=== PATIENT | male | born 1990 | race Caucasian/White ===

== ENCOUNTER → 2020-02-21 07:29 | Outpatient (CLI) | payer BC, SELFPAY ==
--- NOTE | 2020-02-21 07:43 | US_ITS ---
PROCEDURE: US ABDOMEN LIMITED CLINICAL INDICATION: RUQ PAIN COMPARISON: No exams were available for comparison FINDINGS: PANCREAS: Unremarkable. No obvious mass or abnormal fluid collection. No ductal dilatation LIVER: No focal liver lesions demonstrated. Homogeneous echogenicity. No intrahepatic biliary ductal dilatation evident. There is appropriate direction of blood flow within a non dilated portal vein RIGHT KIDNEY: Unremarkable. Normal size and echogenicity. No hydronephrosis GALLBLADDER: No gallstones, gallbladder wall thickening, pericholecystic fluid, or biliary dilatation. IMPRESSION: Unremarkable limited abdominal ultrasound as detailed above disc Dictated by: Bong Moya MD 02/21/2020 08:50 Electronically signed by Bong Moya MD in [place] 02/21/2020 08:50
[2020-02-21 08:44] LABS: Basophils # 0.1 K/mm3 (0-0.2); Basophils % 1.1 % (0.1-2.0); Eosinophils # 0.3 K/mm3 (0.0-0.4); Eosinophils % 4.1 % (0.1-12.0); Hematocrit 39.5 % (42.0-52.0); Hemoglobin 13.7 g/dL (14.1-18.0); Lymphocytes # 1.5 K/mm3 (0.7-4.5); Lymphocytes % 20.1 % (10-50); Mean Corpuscular HGB Conc 34.8 g/dL (31.8-35.4); Mean Corpuscular Hemoglobin 34.4 pg (27.0-31.2); Mean Corpuscular Volume 98.8 fl (80-94); Mean Platelet Volume 8.2 fl (7.4-10.4); Monocytes # 0.4 K/mm3 (0.1-1.0); Monocytes % 4.9 % (1.7-9.3); Neutrophils # 5.3 K/mm3 (1.8-7.8); Neutrophils % 69.9 % (37.0-80.0); Platelet Count 191 K/mm3 (142-424); Red Blood Count 3.99 M/mm3 (4.60-6.20); Red Cell Distribution Width 13.8 % (11.5-17.5); White Blood Count 7.6 K/mm3 (4.8-10.8)
[2020-02-21 09:46] LABS: Chloride 100 mmol/L (98-107); Sodium 140 mmol/L (136-145)
[2020-02-21 09:47] LABS: Potassium 4.3 mmoL/L (3.5-5.1)
[2020-02-21 09:49] LABS: Alanine Aminotransferase 75 U/L (12-78); Alkaline Phosphatase 52 U/L (38-126); Anion Gap 13.3 mEq/L (5-15); Aspartate Amino Transferase 75 U/L (17-59); Bilirubin,Total 0.6 mg/dl (0.2-1.3); Blood Urea Nitrogen 19 mg/dl (9-20); Calcium 9.7 mg/dl (8.4-10.2); Carbon Dioxide 31 mmol/L (22.0-30.0); Estimated Glomerular Filt Rate 56 ml/min (>60); GFR (African American) 68 ML/MIN (>60); Glucose 96 mg/dl (74-100)
[2020-02-21 09:50] LABS: Albumin/Globulin Ratio 1.7 (1.1-1.8)
[2020-02-21 12:39] LABS: 25-OH Vitamin D, Total 21.6 ng/mL (30-100)
[2020-02-22 09:18] LABS: Vitamin B12 330 pg/mL (232-1245)
== END ==
PROVIDERS: Visit Provider Nurse Practitioner
DX: R10.11 Right upper quadrant pain (principal); R53.82 Chronic fatigue, unspecified; E55.9 Vitamin D deficiency, unspecified
CPT/HCPCS: 36415; 76705; 80053; 82306; 82607; 84443; 85025

== ENCOUNTER → 2021-02-21 09:12 | Outpatient (CLI) | payer BC, SELFPAY ==
--- NOTE | 2021-02-21 09:23 | US_ITS ---
PROCEDURE: US GALLBLADDER CLINICAL INDICATION: OTHER SPECIFIED ABN FINDINGS OF BLOOD CHEMISTRY COMPARISON: US US ABDOMEN LIMITED from 02/21/2020 FINDINGS: Pancreas: Unremarkable/Not well seen Liver: Unremarkable. There is appropriate direction of blood flow within a non dilated portal vein. Right kidney: Unremarkable appearing. No hydronephrosis. Gallbladder: No stones are evident. There is no gallbladder wall thickening. Common duct is normal in diameter. IMPRESSION: Negative gallbladder ultrasound. No stones evident. Dictated by: Bong Moya MD 02/21/2021 12:57 Bong Moya MD in [facility] 02/21/2021 12:57
== END ==
PROVIDERS: PCP Nurse Practitioner; Visit Provider Nurse Practitioner
DX: R79.89 Other specified abnormal findings of blood chemistry (principal)
CPT/HCPCS: 76705

== ENCOUNTER → 2021-12-03 08:23 | Outpatient (CLI) | payer BC, SELFPAY ==
--- NOTE | 2021-12-03 08:26 | MR_ITS ---
FINAL REPORT CLINICAL HISTORY: Dizziness, headache, hearing loss. dizziness x6-7 months. migraine headaches xyrs. hearing loss out of left ear. 20ml prohance given. FINDINGS: Multiplanar MR imaging of the brain was performed without and with contrast, with attention to the posterior fossa, cerebellopontine angles and internal auditory canals. There is no evidence of intracranial hemorrhage or mass. The ventricular size is within normal limits. There is no evidence of shift of the midline structures. No area of abnormal restricted diffusion is identified. Normal major vessel vascular flow voids are seen. No abnormal contrast enhancement is identified within the brain. No mass or abnormal contrast enhancement is seen within the cerebellopontine angles or internal auditory canals. No focal abnormality is identified of the temporal bones. IMPRESSION: No acute intracranial abnormality identified. No mass or abnormal contrast enhancement identified within the cerebellopontine angles or internal auditory canals. Reviewed, Interpreted and Dictated by Danie Rasheed III, MD Transcribed by Gay Mireles Authenticated by Danie Rasheed III, MD on 12/03/2021 11:41:21 AM [facility]
== END ==
PROVIDERS: PCP Nurse Practitioner; Visit Provider Specialist
DX: R42 Dizziness and giddiness (principal); G44.1 Vascular headache, not elsewhere classified; H91.92 Unspecified hearing loss, left ear
CPT/HCPCS: 70553; A9576

== ENCOUNTER → 2021-12-25 10:49 | Outpatient (CLI) | payer BC, SELFPAY | LOC: SL 10:51 | PROVIDERS: PCP Nurse Practitioner; Visit Provider Specialist | DX: G47.30 Sleep apnea, unspecified (principal); R06.83 Snoring | CPT/HCPCS: G0399 ==

== ENCOUNTER → 2022-07-16 14:50 | Outpatient (CLI) | payer BC, SELFPAY ==
[2022-07-16 18:03] LABS: Basophils # 0.1 K/mm3 (0-0.2); Basophils % 1.2 % (0.1-2.0); Eosinophils # 0.1 K/mm3 (0.0-0.4); Eosinophils % 2.1 % (0.1-12.0); Hematocrit 50.3 % (42.0-52.0); Hemoglobin 16.6 g/dL (14.1-18.0); Lymphocytes # 1.6 K/mm3 (0.7-4.5); Lymphocytes % 23.7 % (10-50); Mean Corpuscular Hemoglobin 30.4 pg (27.0-31.2); Mean Corpuscular Volume 92.1 fl (80-94); Mean Platelet Volume 10.5 fl (7.4-10.4); Monocytes # 0.5 K/mm3 (0.1-1.0); Monocytes % 6.5 % (1.7-9.3); Neutrophils # 4.6 K/mm3 (1.8-7.8); Neutrophils % 66.5 % (37.0-80.0); Platelet Count 206 K/mm3 (142-424); Red Blood Count 5.47 M/mm3 (4.60-6.20); Red Cell Distribution Width 12.7 % (11.5-17.5); White Blood Count 6.9 K/mm3 (4.8-10.8)
[2022-07-16 18:04] LABS: Alanine Aminotransferase 60 U/L (12-78); Albumin Level 4.9 g/dl (3.5-5.0); Albumin/Globulin Ratio 1.8 (1.1-1.8); Alkaline Phosphatase 109 U/L (38-126); Anion Gap 12.4 mEq/L (5-15); Aspartate Amino Transferase 43 U/L (17-59); Bilirubin,Total 0.5 mg/dl (0.2-1.3); Blood Urea Nitrogen 11 mg/dl (9-20); Carbon Dioxide 28 mmol/L (22.0-30.0); Chloride 103 mmol/L (98-107); Chol/HDL Ratio 6.5 (1-3.5); Cholesterol 196 mg/dl (140-200); Estimated Glomerular Filt Rate 79 ml/min (>60); GFR (African American) 95 ML/MIN (>60); Globulin 2.8 g/dL (1.3-3.2); Glucose 102 mg/dl (74-100); HDL Cholesterol 30 mg/dl (40-60); Potassium 4.4 mmoL/L (3.5-5.1); Sodium 139 mmol/L (136-145); Total Protein,Serum 7.7 g/dl (6.3-8.2); Triglycerides 181 mg/dl (30-150); VLDL Cholesterol 36 mg/dL (0-40)
[2022-07-16 18:15] LABS: Direct LDL Cholesterol 128.87 mg/dL (100-129)
== END ==
PROVIDERS: PCP Family Medicine; Visit Provider Family Medicine
DX: E03.9 Hypothyroidism, unspecified (principal)
CPT/HCPCS: 80053; 80061; 84443; 85025

== ENCOUNTER → 2023-05-09 08:17 | Outpatient (CLI) | payer BC, SELFPAY ==
[2023-05-09 17:56] LABS: Thyroid Stimulating Hormone 1.22 uIU/mL (0.465-4.68)
== END ==
PROVIDERS: PCP Nurse Practitioner Family; Visit Provider Nurse Practitioner Family
DX: E03.9 Hypothyroidism, unspecified (principal)
CPT/HCPCS: 84443

== ENCOUNTER 2024-06-04 09:45 | Outpatient (CLI) | payer OTHER, SELFPAY ==
[2024-06-04 16:50] LABS: Basophils # 0.1 K/mm3 (0-0.2); Basophils % 0.9 % (0.1-2.0); Eosinophils # 0.2 K/mm3 (0.0-0.4); Eosinophils % 2.1 % (0.1-12.0); Hematocrit 49.1 % (42.0-52.0); Hemoglobin 16.4 g/dL (14.1-18.0); Lymphocytes # 1.1 K/mm3 (0.7-4.5); Lymphocytes % 12.1 % (10-50); Mean Corpuscular HGB Conc 33.3 g/dL (31.8-35.4); Mean Corpuscular Hemoglobin 30.5 pg (27.0-31.2); Mean Corpuscular Volume 91.4 fl (80-94); Mean Platelet Volume 8.9 fl (7.4-10.4); Monocytes # 0.6 K/mm3 (0.1-1.0); Monocytes % 6.1 % (1.7-9.3); Neutrophils # 7.1 K/mm3 (1.8-7.8); Neutrophils % 78.6 % (37.0-80.0); Platelet Count 238 K/mm3 (142-424); Red Blood Count 5.37 M/mm3 (4.60-6.20); Red Cell Distribution Width 13.1 % (11.5-17.5)
[2024-06-04 17:03] LABS: Albumin Level 4.9 g/dl (3.5-5.0); Chloride 102 mmol/L (98-107); Potassium 4.3 mmoL/L (3.5-5.1); Sodium 140 mmol/L (136-145)
[2024-06-04 17:06] LABS: Alanine Aminotransferase 62 U/L (12-78); Albumin/Globulin Ratio 1.8 (1.1-1.8); Alkaline Phosphatase 76 U/L (38-126); Anion Gap 15.3 mEq/L (5-15); Aspartate Amino Transferase 38 U/L (17-59); Bilirubin,Total 0.6 mg/dl (0.2-1.3); Blood Urea Nitrogen 11 mg/dl (9-20); Carbon Dioxide 27 mmol/L (22.0-30.0); Cholesterol 195 mg/dl (140-200); Estimated Glomerular Filt Rate 98 ml/min (>60); GFR (African American) 119 ML/MIN (>60); Globulin 2.7 g/dL (1.3-3.2); Total Protein,Serum 7.6 g/dl (6.3-8.2); Triglycerides 175 mg/dl (30-150); VLDL Cholesterol 35 mg/dL (0-40)
[2024-06-04 17:07] LABS: Calcium 9.6 mg/dl (8.4-10.2); Chol/HDL Ratio 5.1 (1-3.5); Glucose 80 mg/dl (74-100); HDL Cholesterol 38 mg/dl (40-60)
[2024-06-04 17:17] LABS: Direct LDL Cholesterol 128.39 mg/dL (100-129)
[2024-06-04 17:58] LABS: Thyroid Stimulating Hormone 0.87 uIU/mL (0.465-4.68)
[2024-06-04 18:17] LABS: HIV (1&2) Antibody Rapid NONREACTIVE (NONREACTIVE)
[2024-06-05 09:14] LABS: HCV Ab Non Reactive (Non Reactive)
== END 2024-06-04 23:59 | disposition home or self-care (01) ==
LOC: LAB.DROPOF 06-07 10:25
PROVIDERS: PCP Family Medicine; Visit Provider Family Medicine
DX: Z00.00 Encounter for general adult medical examination without abnormal findings (principal)
CPT/HCPCS: 80050; 80053; 80061; 84443; 85025; 86803; 87389

== ENCOUNTER 2024-12-17 18:43 | Inpatient (IN) | payer OTHER, SELFPAY ==
[2024-12-17 19:00] VITALS: BP 160/107; PULSE 98; RESP 16; TEMP 36.7; O2SAT 100; BMI 33.0
[2024-12-17 19:07] LABS: Microscopic, Urine URINE MICROSCOPIC (MICROSCOPIC)
[2024-12-17 19:16] LABS: Appearance,Urine CLEAR (Clear); Bilirubin,Urine Negative (Negative); Blood, Urine 3+ (Negative); Color,Urine YELLOW (Yellow); Glucose,Urine (UA) Negative (Negative); Ketones,Urine Negative (Negative); Leukocyte Esterase,Urine Negative (Negative); Nitrate,Urine Negative (Negative); Protein,Urine 1+ (Negative); Urobilinogen,Urine 0.2 EU/dl (0.2)
[2024-12-17 20:01] LABS: Basophils # 0.1 K/mm3 (0-0.2); Basophils % 0.5 % (0.1-2.0); Eosinophils # 0.1 Kmm3 (0.0-0.4); Eosinophils % 0.8 % (0.1-12.0); Hematocrit 47.8 % (42.0-52.0); Hemoglobin 16.8 g/dL (14.1-18.0); Immature Granulocytes # 0.07 10^3uL; Immature Granulocytes % 0.6 %; Lymphocytes # 1.8 K/mm3 (0.7-4.5); Lymphocytes % 14.9 % (10-50); Mean Corpuscular HGB Conc 35.1 g/dL (31.8-35.4); Mean Corpuscular Hemoglobin 30.5 pg (27.0-31.2); Mean Corpuscular Volume 86.9 fl (80-94); Mean Platelet Volume 10.2 fl (7.4-10.4); Monocytes # 0.8 K/mm3 (0.1-1.0); Monocytes % 6.7 % (1.7-9.3); Neutrophils # 9.3 K/mm3 (1.8-7.8); Neutrophils % 76.5 % (37.0-80.0); Nucleated Red Blood Cells # 0 10^3/uL; Nucleated Red Blood Cells % 0 %; Platelet Count 275 K/mm3 (142-424); Red Cell Distribution Width-SD 38.4 fL; White Blood Count 12.2 K/mm3 (4.8-10.8)
[2024-12-17] MEDS: LACTATED RINGERS 1000ML 1,000 ML 999 ML IV ×2 (20:01→20:53)
[2024-12-17 20:06] LABS: Bacteria,Urine Trace /lpf; RBC,Urine Occasional #/hpf (0-3); Squamous Epithelial Cell,Urine Occasional #/hpf (0-5)
--- NOTE | 2024-12-17 20:11 | HMH.EDGENADL ---
Discharge Plan Disposition Patient Disposition: Admitted Clinical Impressions Clinical Impression: Rhabdomyolysis Discharge ED Provider: Guerda Pat General Adult HPI General Chief complaint: Urogenital-Male Stated complaint: urine is dark brown Time Seen by Provider: 12/17/24 19:03 Mode of Arrival: Ambulatory Source of Information: Patient Description of Symptoms (Recalled from ER Triage Doc. by RN): Dark Brown urine x6 hours. Just started working out 3 days ago. No other urinary symptoms. History of Present Illness HPI narrative: This patient is a 34-year-old male who has history of hypothyroidism presenting to the emergency department for evaluation with concern for dark urine. Patient reports he worked out for the first time yesterday and thinks that he might have overdone it. He notes that he has significant muscle soreness in his chest and upper body. He states that he told his friend about dark urine and his friend said he might have rhabdomyolysis. He denies any back pain or other concerns. Related Data Previous Rx's ?Medication ?Instructions ?Recorded betamethasone dipropionate 0.05 % 1 applic topical DAILY #15 grams 06/04/24 topical cream levothyroxine 200 mcg tablet 200 mcg PO DAILY 90 days #90 tabs 09/23/24 sertraline 25 mg tablet (Zoloft) 25 mg PO DAILY anxiety #30 tabs 10/29/24 verapamil 120 mg tablet,extended See Rx Instructions .Route 10/29/24 release .COMPLEX #30 tabs Allergies Allergy/AdvReac Type Severity Reaction Status Date / Time No Known Allergies Allergy Verified 08/23/24 12:41 [facility] Disclaimer: The information contained in this section may have been updated after the patient was seen, as this information can be updated by other users. Medical History Hypothyroidism Migraine Surgical History No significant past surgical history Family History Mother Cancer Social History Smoking Status: Never smoker alcohol intake: never substance use type: denies use current occupational status: employed Travel in the last 8 weeks?: None household members: significant other housing: house Have you lived/traveled outside US in past 30 days?: No Contact w/someone who lives/traveled outside US past 30 days?: No Exposure to someone with infectious disease in past 14 days?: No Do you have a fever (greater than 100.4 F or 38 C)?: No Have you tested positive for COVID-19?: No Exposed to someone with COVID-19 in past 14 days?: No Do you have a sore throat?: No Do you have a cough?: No Do you have any weakness?: No Do you have any diarrhea?: No Are you experiencing any unusual bleeding?: No Do you have any muscle aches/pain?: No Do you have any abdominal pain?: No Are you experiencing loss of taste or smell?: No Other Medical History Have you received the Pneumonia Vaccine: No ROS Obtained: Yes All systems reviewed & no additional complaints except as documented Physical Exam General General appearance: alert and in no apparent distress Head Head exam: atraumatic and normocephalic Eye Eye exam: Present normal appearance, PERRL and EOMI ENT ENT exam: Present normal exam, normal oropharynx, mucous membranes moist and normal external ear exam Neck Neck exam: Present normal inspection, full ROM and trachea midline; Absent tenderness Chest Chest inspection: Present normal inspection and symmetric chest wall rise; Absent tenderness Respiratory Respiratory exam: Present normal lung sounds bilaterally; Absent respiratory distress, wheezes, stridor or accessory muscle use Cardiovascular Cardiovascular exam: Present regular rate and normal rhythm Abdominal Exam Abdominal exam: Present soft; Absent distention, tenderness or guarding Extremities Exam Extremities exam: Present normal inspection, full ROM and normal capillary refill; Absent tenderness or edema Back Exam Back exam: Present normal inspection and full ROM; Absent tenderness Neurological Exam Neurological exam: Present alert, oriented X3, CN II-XII intact and normal gait; Absent motor sensory deficit Psychiatric Psychiatric exam: Present normal affect and normal mood Skin Skin exam: Present warm and dry Medical Decision Making Medical Records Medical records reviewed: Yes I reviewed the patient's medical records. Screening: Per USPSTF and CDC recommendations, given the prevalence of disease in our region, it is our hospital?s policy to screen for HIV and viral Hepatitis for all patients aged 18 and over and those with ongoing risk factors. [place] Inquiry Pt receiving controlled substance: No Vital Signs: 12/17/24 19:00 12/17/24 23:00 12/17/24 23:12 Temperature 98.1 F 98.3 F Temperature Source Oral Oral Pulse Rate 87 Pulse Rate [Right] 98 H Respiratory Rate 16 18 Blood Pressure 148/102 H Blood Pressure [Right Arm] 160/107 H Blood Pressure Mean [Right Arm] 124 02 Sat by Pulse Oximetry 100 Oxygen Delivery Method Room Air Room Air Room Air Lab Data Lab results reviewed: Yes I reviewed the patient's lab results. Lab Results 12/17/24 18:57: Urine Color Yellow, Urine Appearance Clear, Urine pH 6.0, Ur Specific [place] 1.010, Urine Protein 1+ A, Urine Glucose (UA) Negative, Urine Ketones Negative, Urine Blood 3+ A, Urine Nitrate Negative, Urine Bilirubin Negative, Urine Urobilinogen 0.2, Ur Leukocyte Esterase Negative, Urine RBC Occasional, Urine WBC None, Ur Squamous Epith Cells Occasional, Urine Bacteria Trace 12/17/24 19:52: WBC 12.2 H, RBC 5.50, Hgb 16.8, Hct 47.8, MCV 86.9, MCH 30.5, MCHC 35.1, RDW 12.0, Plt Count 275, MPV 10.2, Neut % (Auto) 76.5, Lymph % (Auto) 14.9, [place] % (Auto) 6.7, Eos % (Auto) 0.8, Baso % (Auto) 0.5, Neut # (Auto) 9.3 H, Lymph # (Auto) 1.8, [place] # (Auto) 0.8, Eos # (Auto) 0.1, Baso # (Auto) 0.1, Sodium 139, Potassium 4.1, Chloride 102, Carbon Dioxide 30, Anion Gap 11.1, BUN 20, Creatinine 1.20, Estimated Creat Clear 142, Estimated GFR 70, Est GFR ( Amer) 85, Glucose 98, Lactate 1.3, Calcium 9.7, Total Creatine Kinase > 300733 H* 12/17/24 19:52 12/17/24 19:52 Orders (Tests/Meds): ED MEDICATIONS Generic Name Dose Route Start Last Admin Trade Name Freq PRN Reason Stop Dose Admin Acetaminophen 650 mg 12/17/24 22:51 Acetaminophen 325mg Tab PO 01/16/25 22:50 Q4HP PRN Fever or Mild Pain (1-3) Diazepam 2 mg 12/17/24 23:10 12/18/24 00:17 Diazepam 2mg Tablet PO 01/16/25 23:09 2 mg Q6HP PRN Administration Muscle Pain Hydromorphone HCl 1 mg 12/17/24 22:51 Hydromorphone 2mg/Ml Syringe IV 01/16/25 22:50 Q4HP PRN Severe Pain (7-10) Lactated Ringer's 500 mls @ 250 mls/hr 12/17/24 22:27 12/17/24 23:51 Lactated Ringer's 1000 Ml Bag IV 12/18/24 00:26 250 mls/hr .Q2H ONE Administration Ondansetron HCl 4 mg 12/17/24 22:51 Ondansetron 4mg/2ml Vial IV 01/16/25 22:50 Q8HP PRN Nausea Pantoprazole Sodium 40 mg 12/18/24 21:00 Pantoprazole 40mg Tablet PO 01/17/25 20:59 HS ABIODUN Discontinued Medications Generic Name Dose Route Start Last Admin Trade Name Freq PRN Reason Stop Dose Admin Lactated Ringer's 1,000 mls @ 999 mls/hr 12/17/24 19:43 12/17/24 20:01 Lactated Ringer's 1000 Ml Bag IV 12/17/24 20:43 999 mls/hr .Q1H1M ONE Administration Lactated Ringer's 1,000 mls @ 999 mls/hr 12/17/24 20:37 12/17/24 20:53 Lactated Ringer's 1000 Ml Bag IV 12/17/24 21:37 999 mls/hr .Q1H1M ONE Administration ORDERS Category Date Time Status BMP [Basic Metabolic Panel] Stat Lab 12/17/24 19:52 Completed CBC w/Auto Diff [Complete Blood Count Auto Diff] Stat Lab 12/17/24 19:52 Completed CK [Creatine Kinase] Stat Lab 12/17/24 19:52 Completed Lactic Acid Stat Lab 12/17/24 19:52 Completed UA [Urinalysis and Microscopic] Stat Lab 12/17/24 18:57 Completed Medical Decision Narrative: In summary, this patient is a 34-year-old male presenting to the Emergency Department for evaluation of dark urine after exercising yesterday for the first time. Differential diagnoses considered include but are not limited to NH lysis, dehydration, KRIS. Ruling out the most morbid conditions drove assessment. It should be noted patient's history includes hypothyroidism which may or may not be at goal therapy. This complicates all aspects of care by increasing patient's risk for morbidity. On exam, the patient is well-appearing. He sitting upright in no acute distress with reassuring vitals on cardiac telemetry. Workup included urinalysis initially, which was concerning for 3+ blood with only occasional red blood cells. This is concerning for rhabdomyolysis, so CBC, BMP, CK, and lactic acid were added. Patient was given a bolus of IV fluids. Labs demonstrated reassuring CBC with mild leukocytosis, chemistry demonstrates normal kidney function but slightly elevated creatinine from prior, 1.2 today from 0.9 before. He is still making urine. CK is too high to calculate on our lab evaluation after multiple dilutions. I had an interactive discussion with lab who advises they are sending it out to [facility] for testing. It was greater than 160,000. Given this, he was treated with 2 L of IV fluids and then 250 cc/h of IV fluids here in the emergency department. I feel he would benefit from admission for close monitoring of his urine output and kidney function. I had an interactive discussion with the hospitalist who admitted the patient in stable condition. Critical Care Critical Care Time Critical Care Time: No
[2024-12-17 20:20] LABS: Anion Gap 11.1 mEq/L (5-15); Blood Urea Nitrogen 20 mg/dl (9-20); Calcium 9.7 mg/dl (8.4-10.2); Carbon Dioxide 30 mmol/L (22.0-30.0); Chloride 102 mmol/L (98-107); Creatinine Clearance Estimated 142 mL/min (50-200); Estimated Glomerular Filt Rate 70 ml/min (>60); GFR (African American) 85 ML/MIN (>60); Glucose 98 mg/dl (74-100); Lactic Acid 1.3 mmol/L (0.7-2.1); Potassium 4.1 mmoL/L (3.5-5.1); Sodium 139 mmol/L (136-145)
[2024-12-17 23:12] VITALS: BP 148/102; PULSE 87; RESP 18; TEMP 36.8; O2SAT 98
[2024-12-17] MEDS: LACTATED RINGERS 1000ML 500 ML 250 ML IV (23:51)
[2024-12-17 23:53] VITALS: BP 148/102; PULSE 86; RESP 17; TEMP 36.7; O2SAT 100; BMI 33.1
[2024-12-18] MEDS: diazePAM 2MG TABLET 2 MG PO (00:17)
--- NOTE | 2024-12-18 02:36 | P.HP_ITS ---
History of Present Illness *Admission Date: 12/17/24 *Reason for visit:: Rhabdomyolysis *History of present illness: This very pleasant young 32-year-old male, got with one of his friends that is a weightlifter and spent basically all day lifting weights. Multiple sets with a fairly significant amount of weight with high reps. He began to hurt all over to come in to be checked, labs indicate his CK levels are so high that even diluting them cannot get them below the highest measurement.. He also noted he hurt all over and that his urine was dark. I have interviewed him and assessed in the emergency room. The patient is able to walk without any assistance he does not look to be in any acute distress. On talking with him he describes how his upper body and muscles throughout the chest wall are really hurting . He is pleasant and is breast understanding of the lab values and that this may end up causing him some problems and that we need to keep him overnight to continue to flush out the muscle enzymes to prevent any type of kidney injury. So we will admit him to the floor continue to give him lactated Ringer's at 250 cc an hour presently on his fourth liter at this time. Labs will be repeated in the morning to see if you are making progress [facility] Disclaimer: The information contained in this section may have been updated after the patient was seen, as this information can be updated by other users. Medical History (Updated 12/18/24 @ 02:47 by Jonathan Keane APRN) Panic attacks Hypothyroidism Migraine Surgical History No significant past surgical history Family History Mother Cancer Social History Smoking Status: Never smoker alcohol intake: never substance use type: denies use current occupational status: employed Travel in the last 8 weeks?: None household members: significant other housing: house Have you lived/traveled outside US in past 30 days?: No Contact w/someone who lives/traveled outside US past 30 days?: No Exposure to someone with infectious disease in past 14 days?: No Do you have a fever (greater than 100.4 F or 38 C)?: No Have you tested positive for COVID-19?: No Exposed to someone with COVID-19 in past 14 days?: No Do you have a sore throat?: No Do you have a cough?: No Do you have any weakness?: No Do you have any diarrhea?: No Are you experiencing any unusual bleeding?: No Do you have any muscle aches/pain?: No Do you have any abdominal pain?: No Are you experiencing loss of taste or smell?: No Other Medical History Have you received the Flu Vaccine for this season: No Have you received the Pneumonia Vaccine: No Review of Systems Review of Systems Review of systems:: pertinent systems reviewed and negative unless documented below Constitutional Constitutional: Reports as per HPI Eyes Eyes: Reports as per HPI ENT Ears, Nose, Mouth, and Throat: Reports as per HPI *Cardiovascular Cardiovascular: Reports as per HPI *Respiratory Respiratory: Reports as per HPI *Gastrointestinal Gastrointestinal: Reports as per HPI *Genitourinary Genitourinary: Reports as per HPI and Reports hematuria Comments: Dark urine *Musculoskeletal Musculoskeletal: Reports muscle cramps Integumentary/Breasts Skin/Breast: Reports as per HPI *Neurologic Neurologic: Reports as per HPI Psychiatric Psychiatric: Reports as per HPI Endocrine Endocrine: Reports as per HPI Hematologic/Lymphatic Hematologic/Lymphatic: Reports as per HPI Allergic/Immunologic Allergic/Immunologic: Reports as per HPI Meds Home Medications and Allergies Home Medications ?Medication ?Instructions ?Recorded ?Confirmed ?Type betamethasone dipropionate 0.05 % 1 applic topical [place] LY #15 grams 06/04/24 12/17/24 Rx topical cream levothyroxine 200 mcg tablet 200 mcg PO DAILY 90 days #90 tabs 09/23/24 12/17/24 Rx sertraline 25 mg tablet (Zoloft) 25 mg PO DAILY anxiet y #30 tabs 10/29/24 12/17/24 Rx verapamil 120 mg tablet,extended See Rx Instructions . Route 10/29/24 12/17/24 Rx release .COMPLEX #30 tabs New Prescriptions to Start Prescriptions: Allergies Allergy/AdvReac Type Severity Reaction Status Date / Time No Known Allergies Allergy Verified 08/23/24 12:41 Exam Data for Last 24 hours Vital signs and Labs for Last 24 Hours: Temp Pulse Resp BP Pulse Ox O2 Del Method 98.1 F 86 17 148/102 H 100 Room Air 12/17/24 23:53 12/17/24 23:53 12/17/24 23:53 12/17/24 23:53 12/17/24 23:53 12/18/24 01:00 Laboratory Results - last 24 hr 12/17/24 18:57: Urine Color Yellow, Urine Appearance Clear, Urine pH 6.0, Ur Specific [place] 1.010, Urine Protein 1+ A, Urine Glucose (UA) Negative, Urine Ketones Negative, Urine Blood 3+ A, Urine Nitrate Negative, Urine Bilirubin Negative, Urine Urobilinogen 0.2, Ur Leukocyte Esterase Negative, Urine RBC Occasional, Urine WBC None, Ur Squamous Epith Cells Occasional, Urine Bacteria Trace 12/17/24 19:52: WBC 12.2 H, RBC 5.50, Hgb 16.8, Hct 47.8, MCV 86.9, MCH 30.5, MCHC 35.1, RDW 12.0, Plt Count 275, MPV 10.2, Neut % (Auto) 76.5, Lymph % (Auto) 14.9, [place] % (Auto) 6.7, Eos % (Auto) 0.8, Baso % (Auto) 0.5, Neut # (Auto) 9.3 H, Lymph # (Auto) 1.8, [place] # (Auto) 0.8, Eos # (Auto) 0.1, Baso # (Auto) 0.1, Sodium 139, Potassium 4.1, Chloride 102, Carbon Dioxide 30, Anion Gap 11.1, BUN 20, Creatinine 1.20, Estimated Creat Clear 142, Estimated GFR 70, Est GFR ( Amer) 85, Glucose 98, Lactate 1.3, Calcium 9.7, Total Creatine Kinase > 456257 H* I & O for Last 24 hours: Intake & Output 12/15/24 12/16/24 12/17/24 12/18/24 05:59 05:59 05:59 05:59 Weight 250 lb Constitutional Constitutional: mild distress Comments: Generalized muscle pain *Routine HEENT Exam Head: Present normocephalic and atraumatic Eye: Present EOMI and PERRL ENT: Present mucous membranes moist *Routine Neck Exam Neck: Present supple and full ROM Routine Chest/Breast/Axilla Exam Chest wall: Present tenderness (Generalized chest wall and upper shoulder and back pain) *Routine Respiratory Exam Respiratory: Present CTA bilaterally and symmetric chest movement *Routine Cardiovascular Exam Cardiovascular: Present RRR, Normal S1 and Normal S2 *Routine Abdominal Exam Abdominal: Present soft, normoactive bowel sounds and tenderness (Generalized abdominal wall tenderness and some point tenderness) *Routine Rectal Exam Rectal:: deferred *Routine Genitalia Exam Genitalia:: deferred *Routine Extremities Exam Extremities: Present full ROM, pulses intact and normal capillary refill Routine Back/Spine/Pelvis Exam Back/Spine: Present full ROM and paraspinal tenderness Back image: 2 1. Area of tenderness to the back *Routine Skin Exam Skin: Present intact, dry and normal turgor Comments: No signs of wounds are bruising *Routine Neurological Exam Neurological: Present alert, oriented X3, CN II-XII intact, normal reflexes, moving all extremities, normal tone, vision grossly intact and hearing grossly intact Routine Psychiatric Exam Psychiatric: Present normal affect, normal thought process, cooperative, good insight and good judgment H&P: Result Impressions 1. Rhabdomyolysis secondary to extreme workout Assessment and Plan *Assessment and plan (1) Rhabdomyolysis: Status: Acute Qualifiers: Encounter type: initial encounter Rhabdomyolysis type: traumatic Q ualified Code(s): T79.6XXA - Traumatic ischemia of muscle, initial encounter Category: Medical Code(s): M62.82 - Rhabdomyolysis (2) Muscle pain: Status: Acute Category: Medical Code(s): M79.10 - Myalgia, unspecified site (3) Hematuria: Status: Acute Qualifiers: Hematuria type: unspecified type Qualified Code(s): R31.9 - Hematuria, unspecified Category: Medical Code(s): R31.9 - Hematuria, unspecified (4) Panic attacks: Status: Inactive Category: Medical Code(s): F41.0 - Panic disorder [episodic paroxysmal anxiety] (5) Hypothyroidism: Status: Acute Qualifiers: Hypothyroidism type: unspecified Qualified Code(s): E03.9 - Hypothyroidism, unspecified Category: Medical Code(s): E03.9 - Hypothyroidism, unspecified Plan 34-year-old male with intense workout over the past week. Presented with significant arm pain and change in urine to tea colored. Found to have rhabdomyolysis. Discussed case with ER physician, request admission for further management. Medicine agreed to admit. Initiated on aggressive fluid resuscitation. Necessitating inpatient care. Problems addressed as follows: Rhabdomyolysis: - Kidney function normal on presentation, urine dark. Initiated on LR at 250 cc an hour to flush kidneys - Initial CK of >160,000; BUN 20, creatinine 1.2 on presentation - Stable on room air. Repeat labs ordered for the morning with CPK, CMP, CBC - Dilaudid ordered for pain control, monitor for toxicity Resume home levothyroxine for hypothyroid Resume home verapamil for hypertension Resume home Zoloft for anxiety
--- NOTE | 2024-12-18 02:43 | PC.NURSE ---
Pt AOx4, independent. Pt reported some muscle pain earlier, administered prn valium. Upon reassessment, pt is sleeping. Respirations even and unlabored. 18g to RAC with LR running at 250mL/hr. Bed is low, locked, and call light is in reach.
[2024-12-18 04:00] VITALS: BP 136/79; PULSE 70; RESP 16; TEMP 37; O2SAT 96; BMI 34.4
[2024-12-18] MEDS: LACTATED RINGERS 1000ML 500 ML 250 ML IV (04:17)
[2024-12-18] MEDS: HYDROMORPHONE 2MG/ML SYRINGE 1 MG IV ×4 (05:56→19:55)
[2024-12-18 06:39] LABS: Basophils # 0.1 K/mm3 (0-0.2); Basophils % 0.6 % (0.1-2.0); Eosinophils # 0.2 Kmm3 (0.0-0.4); Eosinophils % 2.4 % (0.1-12.0); Hematocrit 44.8 % (42.0-52.0); Immature Granulocytes # 0.05 10^3uL; Immature Granulocytes % 0.6 %; Lymphocytes # 1.8 K/mm3 (0.7-4.5); Lymphocytes % 21.7 % (10-50); Mean Corpuscular HGB Conc 33.3 g/dL (31.8-35.4); Mean Corpuscular Hemoglobin 29.6 pg (27.0-31.2); Mean Corpuscular Volume 89.1 fl (80-94); Mean Platelet Volume 10.6 fl (7.4-10.4); Monocytes # 0.7 K/mm3 (0.1-1.0); Monocytes % 8.7 % (1.7-9.3); Neutrophils # 5.5 K/mm3 (1.8-7.8); Nucleated Red Blood Cells # 0 10^3/uL; Nucleated Red Blood Cells % 0 %; Platelet Count 238 K/mm3 (142-424); Red Blood Count 5.03 M/mm3 (4.60-6.20); Red Cell Distribution Width 12.6 % (11.5-17.5); Red Cell Distribution Width-SD 40.7 fL; White Blood Count 8.4 K/mm3 (4.8-10.8)
[2024-12-18 06:58] LABS: Hemoglobin 15.2 g/dL (14.1-18.0); Lactic Acid 1.5 mmol/L (0.7-2.1)
[2024-12-18 07:21] LABS: Alanine Aminotransferase 375 U/L (12-78); Albumin Level 4.1 g/dl (3.5-5.0); Albumin/Globulin Ratio 1.8 (1.1-1.8); Alkaline Phosphatase 73 U/L (38-126); Anion Gap 9.2 mEq/L (5-15); Bilirubin,Total 0.5 mg/dl (0.2-1.3); Blood Urea Nitrogen 14 mg/dl (9-20); Calcium 9.1 mg/dl (8.4-10.2); Carbon Dioxide 28 mmol/L (22.0-30.0); Chloride 106 mmol/L (98-107); Creatinine Clearance Estimated 177 mL/min (50-200); Estimated Glomerular Filt Rate 87 ml/min (>60); GFR (African American) 105 ML/MIN (>60); Globulin 2.3 g/dL (1.3-3.2); Glucose 109 mg/dl (74-100); Potassium 4.2 mmoL/L (3.5-5.1); Sodium 139 mmol/L (136-145); Total Protein,Serum 6.4 g/dl (6.3-8.2)
[2024-12-18 07:28] LABS: Aspartate Amino Transferase 1322 U/L (17-59)
[2024-12-18 07:41] VITALS: BP 142/89; PULSE 94; RESP 16; TEMP 36.6; O2SAT 96
[2024-12-18 08:04] LABS: Creatine Kinase 129756 U/L (55-170)
[2024-12-18] MEDS: LEVOTHYROXINE 100MCG (0.1MG) TAB 200 MCG PO (09:22)
[2024-12-18] MEDS: VERAPAMIL SR 120MG TABLET 120 MG PO (09:22)
[2024-12-18] MEDS: SERTRALINE 50MG TABLET 25 MG PO (09:22)
--- NOTE | 2024-12-18 10:19 | EXP.ACUTE.PN ---
Subjective *Date: 12/18/24 *Time: 11:53 Interval history: Stable on room air. Having good urine output. Urine clearing, now light yellow. No nausea or vomiting. Denies shortness of breath. Complaining of soreness in his chest and arms throughout the musculature. Denies significant pain in legs. Alert and oriented x 4 Medical Exam Vital signs and Labs for Last 24 Hours: Vital Signs Temp Pulse Pulse Resp BP BP Pulse Ox 12/18/24 09:00 12/18/24 08:00 12/18/24 07:41 97.8 F 94 H 16 142/89 H 96 12/18/24 06:45 12/18/24 05:00 12/18/24 04:00 98.6 F 70 16 136/79 96 12/18/24 03:00 12/18/24 01:00 12/17/24 23:53 98.1 F 86 17 148/102 H 100 12/17/24 23:12 98.3 F 87 18 148/102 H 12/17/24 23:00 12/17/24 19:00 98.1 F 98 H 16 160/107 H 100 O2 Del Method 12/18/24 09:00 Room Air 12/18/24 08:00 Room Air 12/18/24 07:41 Room Air 12/18/24 06:45 Room Air 12/18/24 05:00 Room Air 12/18/24 04:00 Room Air 12/18/24 03:00 Room Air 12/18/24 01:00 Room Air 12/17/24 23:53 Room Air 12/17/24 23:12 Room Air 12/17/24 23:00 Room Air 12/17/24 19:00 Room Air Intake and Output 12/17/24 12/18/24 12/18/24 23:59 07:59 15:59 Intake Total 0 / 200 200 / 200 Balance 0 / 200 200 / 200 Intake: Intake, Oral Amount 0 / 200 200 / 200 Intake, Oral Supplement Amount 0 / 0 Other: Number of Unmeasured Voids 1 Weight 113.398 kg 117.934 kg Patient Weight 12/18/24 23:59 Weight 117.934 kg Laboratory Results - last 24 hr 12/17/24 18:57: Urine Color Yellow, Urine Appearance Clear, Urine pH 6.0, Ur Specific [place] 1.010, Urine Protein 1+ A, Urine Glucose (UA) Negative, Urine Ketones Negative, Urine Blood 3+ A, Urine Nitrate Negative, Urine Bilirubin Negative, Urine Urobilinogen 0.2, Ur Leukocyte Esterase Negative, Urine RBC Occasional, Urine WBC None, Ur Squamous Epith Cells Occasional, Urine Bacteria Trace 12/17/24 19:52: WBC 12.2 H, RBC 5.50, Hgb 16.8, Hct 47.8, MCV 86.9, MCH 30.5, MCHC 35.1, RDW 12.0, Plt Count 275, MPV 10.2, Neut % (Auto) 76.5, Lymph % (Auto) 14.9, [place] % (Auto) 6.7, Eos % (Auto) 0.8, Baso % (Auto) 0.5, Neut # (Auto) 9.3 H, Lymph # (Auto) 1.8, [place] # (Auto) 0.8, Eos # (Auto) 0.1, Baso # (Auto) 0.1, Sodium 139, Potassium 4.1, Chloride 102, Carbon Dioxide 30, Anion Gap 11.1, BUN 20, Creatinine 1.20, Estimated Creat Clear 142, Estimated GFR 70, Est GFR ( Amer) 85, Glucose 98, Lactate 1.3, Calcium 9.7, Total Creatine Kinase > 281042 H* 12/18/24 06:15: WBC 8.4 D, RBC 5.03, Hgb 15.2, Hct 44.8, MCV 89.1, MCH 29.6, MCHC 33.3, RDW 12.6, Plt Count 238, MPV 10.6 H, Neut % (Auto) 66.0, Lymph % (Auto) 21.7, [place] % (Auto) 8.7, Eos % (Auto) 2.4, Baso % (Auto) 0.6, Neut # (Auto) 5.5, Lymph # (Auto) 1.8, [place] # (Auto) 0.7, Eos # (Auto) 0.2, Baso # (Auto) 0.1, Sodium 139, Potassium 4.2, Chloride 106, Carbon Dioxide 28, Anion Gap 9.2, BUN 14 D, Creatinine 1.00, Estimated Creat Clear 177, Estimated GFR 87, Est GFR ( Amer) 105 D, Glucose 109 H, Lactate 1.5, Calcium 9.1, Magnesium 2.0, Total Bilirubin 0.5, AST 1322 H*, ALT 375 H*, Alkaline Phosphatase 73, Total Creatine Kinase 828735 H*, Total Protein 6.4, Albumin 4.1, Globulin 2.3, Albumin/Globulin Ratio 1.8 I & O for Labs for Last 24 Hours: Intake & Output 12/15/24 12/16/24 12/17/24 12/18/24 23:59 23:59 23:59 23:59 Intake Total 200 / 200 Balance 200 / 200 Weight 113.398 kg 117.934 kg Constitutional: Present no acute distress, obese and cooperative Head: Present atraumatic and normocephalic ENT: Present normal exam Respiratory: Present normal respiratory effort; Absent rhonchi, wheezes or crackles Cardiac: Present Reg Rate and Rhythm GI: Present soft and normal bowel sounds; Absent distention or tenderness Extremities: Present normal inspection, full ROM, tenderness (Pectoralis, upper arms) and edema (Arms) Skin: Present intact; Absent erythema Neuro: Present Grossly Intact, alert, awake, oriented x 3 and moves all extremities Assessment and Plan *Assessment and plan (1) Rhabdomyolysis: Status: Acute Qualifiers: Encounter type: initial encounter Rhabdomyolysis type: traumatic Qualified Code(s): T79.6XXA - Traumatic ischemia of muscle, initial encounter Category: Medical Code(s): M62.82 - Rhabdomyolysis (2) Muscle pain: Status: Acute Category: Medical Code(s): M79.10 - Myalgia, unspecified site (3) Hematuria: Status: Acute Qualifiers: Hematuria type: unspecified type Qualified Code(s): R31.9 - Hematuria, unspecified Category: Medical Code(s): R31.9 - Hematuria, unspecified (4) Panic attacks: Status: Inactive Category: Medical Code(s): F41.0 - Panic disorder [episodic paroxysmal anxiety] (5) Hypothyroidism: Status: Acute Qualifiers: Hypothyroidism type: unspecified Qualified Code(s): E03.9 - Hypothyroidism, unspecified Category: Medical Code(s): E03.9 - Hypothyroidism, unspecified Plan 34-year-old male who sustained muscle injury after intense exercise/working out this past week. Admitted for further management. Kidney function remained stable. Continues aggressive hydration and inpatient care for severe rhabdomyolysis and risk for renal injury/failure. Problems addressed as follows: Rhabdomyolysis Muscle injury - Kidney function remained stable today, BUN 14, creatinine 1. Urine light yellow. CK showing response, greater than 160,000 on presentation. Down to 129,000 this morning. Will monitor level every 12 hours. - Repeat CBC, CMP, magnesium ordered for the morning and repeat BMP ordered for the evening to monitor kidney function and electrolytes - Continue LR 200 cc an hour , monitor for volume overload, low threshold to add diuretics or hold fluids if develops respiratory distress. - Dilaudid 1 mg IV every 4 hours as needed for pain. Monitor for toxicity - AST elevated at 1322, ALT 375. Suspect elevation due to muscle injury not liver injury. No abdominal pain/RUQ pain History of hypothyroidism: Continue levothyroxine 200 mcg a day Anxiety: Continue Zoloft 25 mg daily Hypertension: Continue verapamil 120 mg
[2024-12-18] MEDS: LACTATED RINGERS 1000ML 1,000 ML 200 ML IV ×3 (10:22→20:00)
[2024-12-18 16:00] VITALS: BP 135/90; PULSE 91; RESP 16; TEMP 36.6; O2SAT 94
--- NOTE | 2024-12-18 16:44 | PC.NURSE ---
a &ox4. pt resting supine in bed. LR infusing @ 200ml/hr. pt verbalized that valium did not treat his symptoms when administered on heel layer. dilaudid given per mar with reduction of pain. pt showered independently this shift. urine remains dark. no needs at this time. call light within reach.
[2024-12-18 18:25] LABS: Albumin Level 3.8 g/dl (3.5-5.0); Chloride 106 mmol/L (98-107); Potassium 4.1 mmoL/L (3.5-5.1); Sodium 139 mmol/L (136-145)
[2024-12-18 18:28] LABS: Alanine Aminotransferase 442 U/L (12-78); Albumin/Globulin Ratio 1.6 (1.1-1.8); Alkaline Phosphatase 67 U/L (38-126); Anion Gap 6.1 mEq/L (5-15); Bilirubin,Total 0.3 mg/dl (0.2-1.3); Blood Urea Nitrogen 12 mg/dl (9-20); Calcium 8.8 mg/dl (8.4-10.2); Carbon Dioxide 31 mmol/L (22.0-30.0); Creatinine Clearance Estimated 177 mL/min (50-200); Estimated Glomerular Filt Rate 87 ml/min (>60); GFR (African American) 105 ML/MIN (>60); Globulin 2.4 g/dL (1.3-3.2); Glucose 106 mg/dl (74-100); Total Protein,Serum 6.2 g/dl (6.3-8.2)
[2024-12-18 18:48] LABS: Aspartate Amino Transferase 1452 U/L (17-59)
[2024-12-18 19:50] LABS: Creatine Kinase 156402 U/L (55-170)
[2024-12-18] MEDS: PANTOPRAZOLE 40MG TABLET 40 MG PO (19:54)
[2024-12-18 20:00] VITALS: BP 147/85; PULSE 85; RESP 16; TEMP 36.7; O2SAT 96
[2024-12-19] MEDS: HYDROMORPHONE 2MG/ML SYRINGE 1 MG IV ×5 (00:59→20:40)
[2024-12-19] MEDS: LACTATED RINGERS 1000ML 1,000 ML 200 ML IV ×4 (01:02→22:32)
--- NOTE | 2024-12-19 03:37 | PC.NURSE ---
Pt has had some pain on and off throughout the shift, reports usually around a 7. He has been receiving LR @ 200mL/hr. Currently awake and resting in bed with eyes open. Bed is low, locked and call light is in reach.
[2024-12-19 04:00] VITALS: BP 169/102; PULSE 67; RESP 16; TEMP 36.7; O2SAT 98; BMI 34.4
[2024-12-19] MEDS: LEVOTHYROXINE 100MCG (0.1MG) TAB 200 MCG PO (05:46)
[2024-12-19 06:19] LABS: Basophils # 0.1 K/mm3 (0-0.2); Basophils % 0.8 % (0.1-2.0); Eosinophils # 0.2 Kmm3 (0.0-0.4); Eosinophils % 2.7 % (0.1-12.0); Hematocrit 44.6 % (42.0-52.0); Hemoglobin 15.4 g/dL (14.1-18.0); Immature Granulocytes # 0.07 10^3uL; Immature Granulocytes % 0.9 %; Lymphocytes # 1.9 K/mm3 (0.7-4.5); Lymphocytes % 23.6 % (10-50); Mean Corpuscular HGB Conc 34.5 g/dL (31.8-35.4); Mean Corpuscular Hemoglobin 31.1 pg (27.0-31.2); Mean Corpuscular Volume 90.1 fl (80-94); Mean Platelet Volume 10.4 fl (7.4-10.4); Monocytes # 0.7 K/mm3 (0.1-1.0); Monocytes % 8.3 % (1.7-9.3); Neutrophils % 63.7 % (37.0-80.0); Nucleated Red Blood Cells # 0 10^3/uL; Nucleated Red Blood Cells % 0 %; Platelet Count 232 K/mm3 (142-424); Red Blood Count 4.95 M/mm3 (4.60-6.20); Red Cell Distribution Width 12.3 % (11.5-17.5); Red Cell Distribution Width-SD 39.9 fL; White Blood Count 7.9 K/mm3 (4.8-10.8)
[2024-12-19 06:32] LABS: Albumin Level 4.4 g/dl (3.5-5.0); Chloride 104 mmol/L (98-107)
[2024-12-19 06:33] LABS: Sodium 142 mmol/L (136-145)
[2024-12-19 06:35] LABS: Alanine Aminotransferase 538 U/L (12-78); Albumin/Globulin Ratio 1.5 (1.1-1.8); Bilirubin,Total 0.3 mg/dl (0.2-1.3); Blood Urea Nitrogen 12 mg/dl (9-20); Carbon Dioxide 34 mmol/L (22.0-30.0); Creatinine Clearance Estimated 177 mL/min (50-200); Estimated Glomerular Filt Rate 87 ml/min (>60); GFR (African American) 105 ML/MIN (>60); Globulin 2.9 g/dL (1.3-3.2); Total Protein,Serum 7.3 g/dl (6.3-8.2)
[2024-12-19 06:36] LABS: Alkaline Phosphatase 80 U/L (38-126); Calcium 9.8 mg/dl (8.4-10.2); Glucose 122 mg/dl (74-100); Phosphorous 3.7 mg/dl (2.5-4.5)
[2024-12-19 08:00] VITALS: BP 137/69; PULSE 84; RESP 20; TEMP 36.5; O2SAT 96
[2024-12-19 08:01] LABS: Aspartate Amino Transferase 1451 U/L (17-59); Creatine Kinase > 161600 U/L (55-170)
[2024-12-19] MEDS: SERTRALINE 50MG TABLET 25 MG PO (08:36)
[2024-12-19] MEDS: VERAPAMIL SR 120MG TABLET 120 MG PO (08:37)
--- NOTE | 2024-12-19 13:13 | EXP.ACUTE.PN ---
Subjective *Date: 12/19/24 *Time: 13:13 Interval history: Still having arm pain and swelling. Stable on room air. No nausea or vomiting. Ambulating independently. Significant urine output. Voiding independently. Labs show stable kidney function Medical Exam Vital signs and Labs for Last 24 Hours: Vital Signs Temp Pulse Resp BP Pulse Ox O2 Del Method 12/19/24 09:06 Room Air 12/19/24 08:42 Room Air 12/19/24 08:00 97.7 F 84 20 137/69 96 Room Air 12/19/24 08:00 Room Air 12/19/24 06:24 Room Air 12/19/24 05:00 Room Air 12/19/24 04:00 98.0 F 67 16 169/102 H 98 Room Air 12/19/24 03:00 Room Air 12/19/24 01:00 Room Air 12/18/24 23:00 Room Air 12/18/24 21:00 Room Air 12/18/24 20:00 98.1 F 85 16 147/85 H 96 Room Air 12/18/24 20:00 Room Air 12/18/24 18:45 Room Air 12/18/24 16:58 Room Air 12/18/24 16:00 97.8 F 91 H 16 135/90 94 L Room Air 12/18/24 15:00 Room Air Intake and Output 12/18/24 12/19/24 12/19/24 23:59 07:59 15:59 Intake Total 600 / 1160 2850 / 3090 240 / 3090 Output Total 0 / 0 0 / 0 Balance 600 / 1160 2850 / 3090 240 / 3090 Intake: Intake, Oral Amount 600 / 1160 240 / 240 Intake, Total IV Amount 2850 / 2850 Lactated Ringers 1000ML 1,000 2850 / 2850 ml @ 200 mls/hr IV .Q5H [facility] Rx# :[id number] Output: Output, Urine Amount 0 / 0 0 / 0 Other: Number of Unmeasured Voids 1 0 Weight 117.82 kg Patient Weight 12/19/24 23:59 Weight 117.82 kg Laboratory Results - last 24 hr 12/18/24 18:00: Sodium 139, Potassium 4.1, Chloride 106, Carbon Dioxide 31 H, Anion Gap 6.1, BUN 12, Creatinine 1.00, Estimated Creat Clear 177, Estimated GFR 87, Est GFR ( Amer) 105, Glucose 106 H, Calcium 8.8, Total Bilirubin 0.3, AST 1452 H*, ALT 442 H*, Alkaline Phosphatase 67, Total Creatine Kinase 496368 H*, Total Protein 6.2 L, Albumin 3.8, Globulin 2.4, Albumin/Globulin Ratio 1.6 12/19/24 05:52: WBC 7.9, RBC 4.95, Hgb 15.4, Hct 44.6, MCV 90.1, MCH 31.1, MCHC 34.5, RDW 12.3, Plt Count 232, MPV 10.4, Neut % (Auto) 63.7, Lymph % (Auto) 23.6, [place] % (Auto) 8.3, Eos % (Auto) 2.7, Baso % (Auto) 0.8, Neut # (Auto) 5.0, Lymph # (Auto) 1.9, [place] # (Auto) 0.7, Eos # (Auto) 0.2, Baso # (Auto) 0.1, Sodium 142, Potassium 4.0, Chloride 104, Carbon Dioxide 34 H, Anion Gap 8.0, BUN 12, Creatinine 1.00, Estimated Creat Clear 177, Estimated GFR 87, Est GFR ( Amer) 105, Glucose 122 H, Calcium 9.8, Phosphorus 3.7, Magnesium 2.0, Total Bilirubin 0.3, AST 1451 H*, ALT 538 H*, Alkaline Phosphatase 80, Total Creatine Kinase > 977347 H*, Total Protein 7.3, Albumin 4.4 D, Globulin 2.9, Albumin/Globulin Ratio 1.5 I & O for Labs for Last 24 Hours: Intake & Output 12/16/24 12/17/24 12/18/24 12/19/24 23:59 23:59 23:59 23:59 Intake Total 1160 / 1160 3090 / 3090 Output Total 0 / 0 0 / 0 Balance 1160 / 1160 3090 / 3090 Weight 113.398 kg 117.934 kg 117.82 kg Constitutional: Present no acute distress, obese and cooperative Head: Present atraumatic and normocephalic ENT: Present normal exam Respiratory: Present normal respiratory effort; Absent rhonchi, wheezes or crackles Cardiac: Present Reg Rate and Rhythm GI: Present soft and normal bowel sounds; Absent distention or tenderness Extremities: Present normal inspection, full ROM, tenderness (Pectoralis, upper arms) and edema (Arms) Skin: Present intact; Absent erythema Neuro: Present Grossly Intact, alert, awake, oriented x 3 and moves all extremities Assessment and Plan *Assessment and plan (1) Rhabdomyolysis: Status: Acute Qualifiers: Encounter type: initial encounter Rhabdomyolysis type: traumatic Qualified Code(s): T79.6XXA - Traumatic ischemia of muscle, initial encounter Category: Medical Code(s): M62.82 - Rhabdomyolysis (2) Muscle pain: Status: Acute Category: Medical Code(s): M79.10 - Myalgia, unspecified site (3) Hematuria: Status: Acute Qualifiers: Hematuria type: unspecified type Qualified Code(s): R31.9 - Hematuria, unspecified Category: Medical Code(s): R31.9 - Hematuria, unspecified (4) Panic attacks: Status: Inactive Category: Medical Code(s): F41.0 - Panic disorder [episodic paroxysmal anxiety] (5) Hypothyroidism: Status: Acute Qualifiers: Hypothyroidism type: unspecified Qualified Code(s): E03.9 - Hypothyroidism, unspecified Category: Medical Code(s): E03.9 - Hypothyroidism, unspecified Plan 34-year-old male who sustained muscle injury after intense exercise/working out this past week. Admitted for further management. Kidney function remained stable. Continues aggressive hydration and inpatient care for severe rhabdomyolysis and risk for renal injury/failure. Problems addressed as follows: Rhabdomyolysis Muscle injury - Kidney function remained stable today, BUN 12, creatinine 1. Urine light yellow. CK back up to 161,000. - Given stability in kidney function, will monitor every 24 hours. Repeat CBC, CMP, magnesium, CK ordered for the morning - Continue LR 200 cc an hour, monitor for volume overload, low threshold to add diuretics or hold fluids if develops respiratory distress. - Dilaudid 1 mg IV every 4 hours as needed for pain. Monitor for toxicity - AST elevated at 1451, ALT 538. Suspect elevation due to muscle injury not liver injury. No abdominal pain/RUQ pain History of hypothyroidism: Continue levothyroxine 200 mcg a day Anxiety: Continue Zoloft 25 mg daily Hypertension: Continue verapamil 120 mg
--- NOTE | 2024-12-19 14:58 | PC.NURSE ---
Aox4, pain meds given, up ad bethanie, on RA, 18g R AC LR@200 ml/hr, cardiac diet.
[2024-12-19 16:00] VITALS: BP 140/76; PULSE 71; RESP 22; TEMP 36.9; O2SAT 97
[2024-12-19 18:40] LABS: Albumin Level 3.9 g/dl (3.5-5.0); Chloride 104 mmol/L (98-107); Sodium 138 mmol/L (136-145)
[2024-12-19 18:41] LABS: Potassium 3.9 mmoL/L (3.5-5.1)
[2024-12-19 18:43] LABS: Alanine Aminotransferase 522 U/L (12-78); Albumin/Globulin Ratio 1.6 (1.1-1.8); Alkaline Phosphatase 67 U/L (38-126); Anion Gap 6.9 mEq/L (5-15); Bilirubin,Total 0.2 mg/dl (0.2-1.3); Blood Urea Nitrogen 12 mg/dl (9-20); Carbon Dioxide 31 mmol/L (22.0-30.0); Creatinine Clearance Estimated 177 mL/min (50-200); Estimated Glomerular Filt Rate 87 ml/min (>60); GFR (African American) 105 ML/MIN (>60); Globulin 2.5 g/dL (1.3-3.2); Total Protein,Serum 6.4 g/dl (6.3-8.2)
[2024-12-19 18:44] LABS: Calcium 9.1 mg/dl (8.4-10.2); Glucose 149 mg/dl (74-100)
[2024-12-19 19:04] LABS: Aspartate Amino Transferase 1372 U/L (17-59)
[2024-12-19 19:42] VITALS: BP 157/87; PULSE 85; RESP 16; TEMP 36.8; O2SAT 97
[2024-12-19] MEDS: PANTOPRAZOLE 40MG TABLET 40 MG PO (20:36)
[2024-12-20] MEDS: HYDROMORPHONE 2MG/ML SYRINGE 1 MG IV ×6 (01:17→23:51)
--- NOTE | 2024-12-20 03:23 | PC.NURSE ---
Pt AOx4. Has had some pain throughout the shift, which was treated with dilaudid as ordered by the provider. Pt still complaining of some soreness throughout his whole body. LR running at 200mL/hr as ordered. Currently resting in bed with eyes closed. Respirations even and unlabored. Bed low, locked, and call light in reach.
[2024-12-20] MEDS: LACTATED RINGERS 1000ML 1,000 ML 200 ML IV (03:31)
[2024-12-20 04:00] VITALS: BP 142/77; PULSE 71; RESP 16; TEMP 36.5; O2SAT 96; BMI 35.4
[2024-12-20] MEDS: LEVOTHYROXINE 100MCG (0.1MG) TAB 200 MCG PO (06:00)
[2024-12-20 06:47] LABS: Basophils # 0.1 K/mm3 (0-0.2); Basophils % 0.8 % (0.1-2.0); Eosinophils # 0.2 Kmm3 (0.0-0.4); Eosinophils % 3.3 % (0.1-12.0); Hematocrit 39.6 % (42.0-52.0); Hemoglobin 13.1 g/dL (14.1-18.0); Immature Granulocytes # 0.05 10^3uL; Immature Granulocytes % 0.8 %; Lymphocytes # 1.5 K/mm3 (0.7-4.5); Lymphocytes % 24.1 % (10-50); Mean Corpuscular HGB Conc 33.1 g/dL (31.8-35.4); Mean Corpuscular Hemoglobin 29.8 pg (27.0-31.2); Mean Platelet Volume 10.8 fl (7.4-10.4); Monocytes # 0.5 K/mm3 (0.1-1.0); Monocytes % 7.8 % (1.7-9.3); Neutrophils % 63.2 % (37.0-80.0); Nucleated Red Blood Cells # 0 10^3/uL; Nucleated Red Blood Cells % 0 %; Platelet Count 190 K/mm3 (142-424); Red Cell Distribution Width 12.2 % (11.5-17.5); Red Cell Distribution Width-SD 40.3 fL; White Blood Count 6.4 K/mm3 (4.8-10.8)
[2024-12-20 07:35] LABS: Albumin Level 3.4 g/dl (3.5-5.0); Chloride 104 mmol/L (98-107); Potassium 4.2 mmoL/L (3.5-5.1); Sodium 137 mmol/L (136-145)
[2024-12-20 07:38] LABS: Alanine Aminotransferase 498 U/L (12-78); Albumin/Globulin Ratio 1.5 (1.1-1.8); Alkaline Phosphatase 65 U/L (38-126); Anion Gap 6.2 mEq/L (5-15); Bilirubin,Total 0.2 mg/dl (0.2-1.3); Blood Urea Nitrogen 12 mg/dl (9-20); Calcium 8.7 mg/dl (8.4-10.2); Carbon Dioxide 31 mmol/L (22.0-30.0); Creatinine Clearance Estimated 260 mL/min (50-200); Estimated Glomerular Filt Rate 131 ml/min (>60); GFR (African American) 158 ML/MIN (>60); Globulin 2.3 g/dL (1.3-3.2); Glucose 138 mg/dl (74-100); Phosphorous 4.3 mg/dl (2.5-4.5); Total Protein,Serum 5.7 g/dl (6.3-8.2)
[2024-12-20 07:39] LABS: Magnesium 1.9 mg/dl (1.6-2.3)
--- NOTE | 2024-12-20 07:47 | EXP.ACUTE.PN ---
Subjective *Date: 12/20/24 *Time: 16:28 Interval history: Still having arm pain and swelling, no worse than yesterday. Stable on room air. No nausea or vomiting. Ambulating independently. Stable and appropriate urine output. Labs show stable kidney function Medical Exam Vital signs and Labs for Last 24 Hours: Vital Signs Temp Pulse Resp BP Pulse Ox O2 Del Method 12/20/24 06:33 Room Air 12/20/24 05:00 Room Air 12/20/24 04:00 97.7 F 71 16 142/77 H 96 Room Air 12/20/24 03:00 Room Air 12/20/24 01:00 Room Air 12/19/24 23:00 Room Air 12/19/24 21:00 Room Air 12/19/24 20:00 Room Air 12/19/24 19:42 98.2 F 85 16 157/87 H 97 Room Air 12/19/24 17:00 Room Air 12/19/24 16:00 98.5 F 71 22 140/76 97 Room Air 12/19/24 14:53 Room Air 12/19/24 09:06 Room Air 12/19/24 08:42 Room Air 12/19/24 08:00 97.7 F 84 20 137/69 96 Room Air 12/19/24 08:00 Room Air Intake and Output 12/19/24 12/19/24 12/20/24 15:59 23:59 07:59 Intake Total 720 / 5865 440 / 5865 5 / 1855 Output Total 0 / 0 0 / 0 Balance 720 / 5865 440 / 5865 1855 / 1855 Intake: Intake, Oral Amount 720 / 1160 440 / 1160 Intake, Total IV Amount 1854 / 1855 Lactated Ringers 1000ML 1,000 1855 / 1855 ml @ 200 mls/hr IV .Q5H [facility] Rx# :[id number] Output: Output, Urine Amount 0 / 0 0 / 0 Other: Number of Unmeasured Voids 1 1 Number of Bowel Movements 1 Weight 121.381 kg Patient Weight 12/20/24 23:59 Weight 121.381 kg Laboratory Results - last 24 hr 12/19/24 05:52: AST 1451 H*, Total Creatine Kinase > 860061 H* 12/19/24 18:27: Sodium 138, Potassium 3.9, Chloride 104, Carbon Dioxide 31 H, Anion Gap 6.9, BUN 12, Creatinine 1.00, Estimated Creat Clear 177, Estimated GFR 87, Est GFR ( Amer) 105, Glucose 149 H D, Calcium 9.1, Total Bilirubin 0.2, AST 1372 H*, ALT 522 H*, Alkaline Phosphatase 67, Total Protein 6.4, Albumin 3.9 D, Globulin 2.5, Albumin/Globulin Ratio 1.6 12/20/24 06:05: WBC 6.4, RBC 4.40 L, Hgb 13.1 L, Hct 39.6 L, MCV 90.0, MCH 29.8, MCHC 33.1, RDW 12.2, Plt Count 190, MPV 10.8 H, Neut % (Auto) 63.2, Lymph % (Auto) 24.1, [place] % (Auto) 7.8, Eos % (Auto) 3.3, Baso % (Auto) 0.8, Neut # (Auto) 4.0, Lymph # (Auto) 1.5, [place] # (Auto) 0.5, Eos # (Auto) 0.2, Baso # (Auto) 0.1 I & O for Labs for Last 24 Hours: Intake & Output 12/17/24 12/18/24 12/19/24 12/20/24 23:59 23:59 23:59 23:59 Intake Total 1160 / 1160 4010 / 5865 1855 / 1855 Output Total 0 / 0 0 / 0 Balance 1160 / 1160 4010 / 5865 1855 / 1855 Weight 113.398 kg 117.934 kg 117.82 kg 121.381 kg Constitutional: Present no acute distress, obese and cooperative Head: Present atraumatic and normocephalic ENT: Present normal exam Respiratory: Present normal respiratory effort; Absent rhonchi, wheezes or crackles Cardiac: Present Reg Rate and Rhythm GI: Present soft and normal bowel sounds; Absent distention or tenderness Extremities: Present normal inspection, full ROM, tenderness (Pectoralis, upper arms) and edema (Arms) Skin: Present intact; Absent erythema Neuro: Present Grossly Intact, alert, awake, oriented x 3 and moves all extremities Assessment and Plan *Assessment and plan (1) Rhabdomyolysis: Status: Acute Qualifiers: Encounter type: initial encounter Rhabdomyolysis type: traumatic Qualified Code(s): T79.6XXA - Traumatic ischemia of muscle, initial encounter Category: Medical Code(s): M62.82 - Rhabdomyolysis (2) Muscle pain: Status: Acute Category: Medical Code(s): M79.10 - Myalgia, unspecified site (3) Hematuria: Status: Acute Qualifiers: Hematuria type: unspecified type Qualified Code(s): R31.9 - Hematuria, unspecified Category: Medical Code(s): R31.9 - Hematuria, unspecified (4) Panic attacks: Status: Inactive Category: Medical Code(s): F41.0 - Panic disorder [episodic paroxysmal anxiety] (5) Hypothyroidism: Status: Acute Qualifiers: Hypothyroidism type: unspecified Qualified Code(s): E03.9 - Hypothyroidism, unspecified Category: Medical Code(s): E03.9 - Hypothyroidism, unspecified Plan 34-year-old male who sustained muscle injury after intense exercise/working out this past week. Admitted for further management. Kidney function remained stable. Continues aggressive hydration and inpatient care for severe rhabdomyolysis and risk for renal injury/failure. Problems addressed as follows: Rhabdomyolysis Muscle injury - Kidney function remained stable today, BUN 12, creatinine 0.7. Urine light yellow. CK improved to 121,000 today. - Decrease LR to 150 cc an hour to decrease risk for volume overload. - Given stability in kidney function, will monitor every 24 hours. Repeat CBC, CMP, magnesium, CK ordered for the morning - Dilaudid 1 mg IV every 4 hours as needed for pain. Monitor for toxicity - AST elevated at 1239, ALT 498, alk phos 65. Suspect elevation due to muscle injury not liver injury. No abdominal pain/RUQ pain History of hypothyroidism: Continue levothyroxine 200 mcg a day Anxiety: Continue Zoloft 25 mg daily Hypertension: Continue verapamil 120 mg PLOV
[2024-12-20 08:00] VITALS: BP 140/79; PULSE 70; RESP 18; TEMP 36.7; O2SAT 95
[2024-12-20 08:14] LABS: Aspartate Amino Transferase 1239 U/L (17-59)
[2024-12-20 09:17] LABS: Creatine Kinase 121765 U/L (55-170)
[2024-12-20] MEDS: LACTATED RINGERS 1000ML 1,000 ML 150 ML IV ×3 (09:54→22:23)
[2024-12-20] MEDS: VERAPAMIL SR 120MG TABLET 120 MG PO (09:54)
[2024-12-20] MEDS: SERTRALINE 50MG TABLET 25 MG PO (09:54)
[2024-12-20 14:48] VITALS: BMI 35.4
[2024-12-20 16:00] VITALS: BP 143/87; PULSE 89; RESP 18; TEMP 36.4; O2SAT 97
[2024-12-20] MEDS: ENOXAPARIN 40MG/0.4ML SYRINGE 40 MG SUBCUT (17:41)
[2024-12-20] MEDS: HYDROCODONE/APAP 5/325 MG TABLET 1 TAB PO (17:42)
--- NOTE | 2024-12-20 19:35 | PC.NURSE ---
PATIENT IS ALERT AND ORIENTED X4, VSS. PATIENT HAS COMPLAINED OF PAIN THROUGHOUT THE DAY, CALLED MD FOR ADDITIONAL PAIN MEDICATION, PAIN TREATED PER MAR AND PT REPORTS DECREASED PAIN LEVEL. PATIENT IS HAVING ADEQUATE CLEAR/YELLOW URINE OUTPUT. CK AST/ALT TRENDING DOWN BUT STILL ELEVATED, LR RUNNING AT 150MLS/HR.
[2024-12-20 20:00] VITALS: BP 132/75; PULSE 78; RESP 16; TEMP 36.9; O2SAT 96
[2024-12-20] MEDS: PANTOPRAZOLE 40MG TABLET 40 MG PO (21:07)
[2024-12-21 04:00] VITALS: BP 122/72; PULSE 61; RESP 16; TEMP 36.5; O2SAT 97; BMI 35.4
[2024-12-21] MEDS: HYDROMORPHONE 2MG/ML SYRINGE 1 MG IV ×2 (04:46→09:04)
[2024-12-21] MEDS: LACTATED RINGERS 1000ML 1,000 ML 150 ML IV ×4 (04:47→23:29)
[2024-12-21] MEDS: LEVOTHYROXINE 100MCG (0.1MG) TAB 200 MCG PO (06:18)
[2024-12-21 06:33] LABS: Basophils # 0.1 K/mm3 (0-0.2); Basophils % 0.8 % (0.1-2.0); Eosinophils # 0.3 Kmm3 (0.0-0.4); Eosinophils % 3.5 % (0.1-12.0); Hematocrit 42.3 % (42.0-52.0); Hemoglobin 14.2 g/dL (14.1-18.0); Immature Granulocytes # 0.09 10^3uL; Immature Granulocytes % 1.3 %; Lymphocytes # 1.7 K/mm3 (0.7-4.5); Lymphocytes % 23.2 % (10-50); Mean Corpuscular HGB Conc 33.6 g/dL (31.8-35.4); Mean Corpuscular Hemoglobin 30.5 pg (27.0-31.2); Mean Platelet Volume 10.4 fl (7.4-10.4); Monocytes # 0.5 K/mm3 (0.1-1.0); Monocytes % 6.5 % (1.7-9.3); Neutrophils # 4.6 K/mm3 (1.8-7.8); Neutrophils % 64.7 % (37.0-80.0); Nucleated Red Blood Cells # 0 10^3/uL; Nucleated Red Blood Cells % 0 %; Platelet Count 208 K/mm3 (142-424); Red Blood Count 4.65 M/mm3 (4.60-6.20); Red Cell Distribution Width 12.4 % (11.5-17.5); Red Cell Distribution Width-SD 40.6 fL; White Blood Count 7.1 K/mm3 (4.8-10.8)
[2024-12-21 07:10] LABS: Magnesium 1.8 mg/dl (1.6-2.3); Phosphorous 4.1 mg/dl (2.5-4.5)
[2024-12-21 07:55] LABS: Creatine Kinase 74435 U/L (55-170)
[2024-12-21 08:00] VITALS: BP 124/75; PULSE 61; RESP 18; TEMP 36.6; O2SAT 97
[2024-12-21] MEDS: ENOXAPARIN 40MG/0.4ML SYRINGE 40 MG SUBCUT (09:01)
[2024-12-21] MEDS: SERTRALINE 50MG TABLET 25 MG PO (09:01)
[2024-12-21] MEDS: VERAPAMIL SR 120MG TABLET 120 MG PO (09:01)
[2024-12-21 09:18] LABS: Creatine Kinase > 160000 U/L (55-170)
[2024-12-21 11:50] LABS: Anion Gap 5.5 mEq/L (5-15); Blood Urea Nitrogen 13 mg/dl (9-20); Carbon Dioxide 31 mmol/L (22.0-30.0); Chloride 101 mmol/L (98-107); Creatinine Clearance Estimated 202 mL/min (50-200); Estimated Glomerular Filt Rate 98 ml/min (>60); GFR (African American) 118 ML/MIN (>60); Glucose 99 mg/dl (74-100); Potassium 4.5 mmoL/L (3.5-5.1); Sodium 133 mmol/L (136-145)
[2024-12-21] MEDS: CYCLOBENZAPRINE 10MG TABLET 10 MG PO (14:05)
[2024-12-21 15:59] LABS: Chloride 101 mmol/L (98-107)
[2024-12-21 16:00] VITALS: BP 134/91; PULSE 75; RESP 20; TEMP 37.1; O2SAT 97
[2024-12-21 16:00] LABS: Potassium 4.6 mmoL/L (3.5-5.1); Sodium 139 mmol/L (136-145)
[2024-12-21 16:03] LABS: Anion Gap 9.6 mEq/L (5-15); Blood Urea Nitrogen 13 mg/dl (9-20); Calcium 9.9 mg/dl (8.4-10.2); Carbon Dioxide 33 mmol/L (22.0-30.0); Creatinine Clearance Estimated 165 mL/min (50-200); Estimated Glomerular Filt Rate 78 ml/min (>60); GFR (African American) 94 ML/MIN (>60); Glucose 96 mg/dl (74-100)
[2024-12-21 16:33] LABS: Creatine Kinase 76503 U/L (55-170)
[2024-12-21] MEDS: HYDROCODONE/APAP 5/325 MG TABLET 1 TAB PO (16:39)
--- NOTE | 2024-12-21 17:10 | PC.NURSE ---
Addendum entered by Gwen Herrera RN 12/21/24 17:59: md aware of patient pain, okay with heating pad placement and ice. flexeril order obtained. aware of most recent ck level. Original Note: patient has done well this shift. does complain of bilateral arm pain, educated on pain management options. flexeril and lortab given. educated on reduction of dilaudid for adequate pain control at discharge. offered ICE and Heat. per md okay to give kpad if needed. is independent in room ringing out as needed. educated on lab values and plan of care as needed. family has been visiting, all questions answered with permission from patient.
[2024-12-21 20:00] VITALS: BP 119/72; PULSE 58; RESP 15; TEMP 36.8; O2SAT 95
[2024-12-21] MEDS: PANTOPRAZOLE 40MG TABLET 40 MG PO (20:56)
--- NOTE | 2024-12-21 21:42 | EXP.PN ---
Subjective *Date: 12/21/24 *Time: 21:42 Interval history: Patient feels slightly better, still diffusely sore around muscles with no signs of hematoma. CK gradually improving, 76,000 today. Continue IV fluids, renal function stable. Exam Data for Last 24 hours Vital signs and Labs for Last 24 Hours: Temp Pulse Resp BP Pulse Ox O2 Del Method 98.2 F 58 L 15 119/72 95 Room Air 12/21/24 20:00 12/21/24 20:00 12/21/24 20:00 12/21/24 20:00 12/21/24 20:00 12/21/24 18:50 Laboratory Results - last 24 hr 12/17/24 19:52: Total Creatine Kinase > 105251 H* 12/21/24 06:07: Sodium 133 L, Potassium 4.5, Chloride 101, Carbon Dioxide 31 H, Anion Gap 5.5, BUN 13, Creatinine 0.90 D, Estimated Creat Clear 202, Estimated GFR 98, Est GFR ( Amer) 118 D, Glucose 99, Calcium 9.0 12/21/24 06:17: WBC 7.1, RBC 4.65, Hgb 14.2, Hct 42.3, MCV 91.0, MCH 30.5, MCHC 33.6, RDW 12.4, Plt Count 208, MPV 10.4, Neut % (Auto) 64.7, Lymph % (Auto) 23.2, [place] % (Auto) 6.5, Eos % (Auto) 3.5, Baso % (Auto) 0.8, Neut # (Auto) 4.6, Lymph # (Auto) 1.7, [place] # (Auto) 0.5, Eos # (Auto) 0.3, Baso # (Auto) 0.1, Phosphorus 4.1, Magnesium 1.8, Total Creatine Kinase 78993 H* 12/21/24 15:45: Sodium 139, Potassium 4.6, Chloride 101, Carbon Dioxide 33 H, Anion Gap 9.6, BUN 13, Creatinine 1.10 D, Estimated Creat Clear 165, Estimated GFR 78, Est GFR ( Amer) 94 D, Glucose 96, Calcium 9.9, Total Creatine Kinase 25452 H* I & O for Last 24 hours: Intake & Output 12/18/24 12/19/24 12/20/24 12/21/24 23:59 23:59 23:59 23:59 Intake Total 1160 / 1160 4010 / 5865 3175 / 3175 4471 / 4471 Output Total 0 / 0 0 / 0 3300 / 3300 4200 / 4200 Balance 1160 / 1160 4010 / 5865 -125 / -125 271 / 271 Weight 117.934 kg 117.82 kg 121.38 kg 121.109 kg Constitutional Constitutional: no acute distress *Routine HEENT Exam Head: Present normocephalic Eye: Present EOMI and PERRL ENT: Present mucous membranes moist *Routine Neck Exam Neck: Present supple; Absent lymphadenopathy *Routine Respiratory Exam Respiratory: Present CTA bilaterally *Routine Cardiovascular Exam Cardiovascular: Present RRR *Routine Abdominal Exam Abdominal: Present soft and normoactive bowel sounds; Absent tenderness *Routine Extremities Exam Extremities: Absent cyanosis, clubbing or edema *Routine Skin Exam Skin: Present warm; Absent rash *Routine Neurological Exam Neurological: Present alert and oriented X3 Assessment and Plan *Assessment and plan (1) Rhabdomyolysis: Status: Acute Qualifiers: Encounter type: initial encounter Rhabdomyolysis type: traumatic Qualified Code(s): T79.6XXA - Traumatic ischemia of muscle, initial encounter Category: Medical Code(s): M62.82 - Rhabdomyolysis (2) Muscle pain: Status: Acute Category: Medical Code(s): M79.10 - Myalgia, unspecified site (3) Hematuria: Status: Acute Qualifiers: Hematuria type: unspecified type Qualified Code(s): R31.9 - Hematuria, unspecified Category: Medical Code(s): R31.9 - Hematuria, unspecified (4) Panic attacks: Status: Inactive Category: Medical Code(s): F41.0 - Panic disorder [episodic paroxysmal anxiety] (5) Hypothyroidism: Status: Acute Qualifiers: Hypothyroidism type: unspecified Qualified Code(s): E03.9 - Hypothyroidism, unspecified Category: Medical Code(s): E03.9 - Hypothyroidism, unspecified Plan Bjorn Moreau is a 34-year-old male who sustained muscle injury after intense exercise/working out this past week. Admitted for further management. Kidney function remains stable. Continues aggressive hydration and inpatient care for severe rhabdomyolysis and risk for renal injury/failure. Problems addressed as follows: Rhabdomyolysis Muscle injury - Kidney function remained stable today, creatinine 1.1, GFR 78. Urine light yellow. CK improved from 121,000 74,000 today. - Continue LR to 150 cc an hour to decrease risk for volume overload. - Given stability in kidney function, will monitor every 24 hours. Repeat CBC, CMP, magnesium, CK ordered for the morning - Started Flexeril 10 mg every 6 hours, discontinue Dilaudid. [place] as needed for breakthrough pain. - AST elevated at 1239, ALT 498, alk phos 65. Suspect elevation due to muscle injury not liver injury. No abdominal pain/RUQ pain History of hypothyroidism: Continue levothyroxine 200 mcg a day Anxiety: Continue Zoloft 25 mg daily Hypertension: Continue verapamil 120 mg PLOV
[2024-12-21] MEDS: MELATONIN 5MG TABLET 10 MG PO (22:01)
[2024-12-22 04:00] VITALS: BP 120/70; PULSE 64; RESP 14; TEMP 36.6; O2SAT 95; BMI 34.4
--- NOTE | 2024-12-22 05:01 | PC.NURSE ---
Pt. is alert and orientated x 4. Pt. is on room air. Pt. c/o pain to bilateral arms. Declined Flexeril and [place], states they did not help much. Pt. requested something to sleep. [place] given and pt. has slept well this shift. Pt's at bedside overnight. Personal items and call navarrete in reach.
[2024-12-22 06:35] LABS: Basophils # 0.1 K/mm3 (0-0.2); Basophils % 0.9 % (0.1-2.0); Eosinophils # 0.2 Kmm3 (0.0-0.4); Eosinophils % 2.9 % (0.1-12.0); Hematocrit 43.8 % (42.0-52.0); Hemoglobin 14.3 g/dL (14.1-18.0); Immature Granulocytes # 0.08 10^3uL; Immature Granulocytes % 1.1 %; Lymphocytes # 1.5 K/mm3 (0.7-4.5); Lymphocytes % 21.1 % (10-50); Mean Corpuscular HGB Conc 32.6 g/dL (31.8-35.4); Mean Corpuscular Hemoglobin 29.3 pg (27.0-31.2); Mean Corpuscular Volume 89.8 fl (80-94); Mean Platelet Volume 10.6 fl (7.4-10.4); Monocytes # 0.5 K/mm3 (0.1-1.0); Monocytes % 6.7 % (1.7-9.3); Neutrophils # 4.7 K/mm3 (1.8-7.8); Neutrophils % 67.3 % (37.0-80.0); Nucleated Red Blood Cells # 0 10^3/uL; Nucleated Red Blood Cells % 0 %; Platelet Count 205 K/mm3 (142-424); Red Blood Count 4.88 M/mm3 (4.60-6.20); Red Cell Distribution Width 12.3 % (11.5-17.5); Red Cell Distribution Width-SD 40.7 fL
[2024-12-22 06:41] LABS: Albumin Level 3.9 g/dl (3.5-5.0); Chloride 101 mmol/L (98-107); Potassium 4.5 mmoL/L (3.5-5.1); Sodium 138 mmol/L (136-145)
[2024-12-22 06:44] LABS: Alanine Aminotransferase 453 U/L (12-78); Albumin/Globulin Ratio 1.4 (1.1-1.8); Anion Gap 9.5 mEq/L (5-15); Aspartate Amino Transferase 701 U/L (17-59); Blood Urea Nitrogen 16 mg/dl (9-20); Calcium 9.6 mg/dl (8.4-10.2); Carbon Dioxide 32 mmol/L (22.0-30.0); Creatinine Clearance Estimated 161 mL/min (50-200); Estimated Glomerular Filt Rate 78 ml/min (>60); GFR (African American) 94 ML/MIN (>60); Globulin 2.7 g/dL (1.3-3.2); Glucose 113 mg/dl (74-100); Total Protein,Serum 6.6 g/dl (6.3-8.2)
[2024-12-22 06:45] LABS: Alkaline Phosphatase 64 U/L (38-126); Bilirubin,Total 0.3 mg/dl (0.2-1.3); Magnesium 1.9 mg/dl (1.6-2.3)
[2024-12-22] MEDS: LACTATED RINGERS 1000ML 1,000 ML 150 ML IV (07:42)
[2024-12-22] MEDS: SERTRALINE 50MG TABLET 25 MG PO (07:43)
[2024-12-22] MEDS: LEVOTHYROXINE 100MCG (0.1MG) TAB 200 MCG PO (07:43)
[2024-12-22] MEDS: VERAPAMIL SR 120MG TABLET 120 MG PO (07:44)
[2024-12-22 08:00] VITALS: BP 118/73; PULSE 71; RESP 13; TEMP 36.6; O2SAT 98
[2024-12-22 09:01] LABS: Creatine Kinase 36604 U/L (55-170)
--- NOTE | 2024-12-22 11:18 | EXP.DC.SUM ---
General Admission date:: 12/17/24 HPI HPI HPI: This very pleasant young 32-year-old male, got with one of his friends that is a weightlifter and spent basically all day lifting weights. Multiple sets with a fairly significant amount of weight with high reps. He began to hurt all over to come in to be checked, labs indicate his CK levels are so high that even diluting them cannot get them below the highest measurement.. He also noted he hurt all over and that his urine was dark. I have interviewed him and assessed in the emergency room. The patient is able to walk without any assistance he does not look to be in any acute distress. On talking with him he describes how his upper body and muscles throughout the chest wall are really hurting . He is pleasant and is breast understanding of the lab values and that this may end up causing him some problems and that we need to keep him overnight to continue to flush out the muscle enzymes to prevent any type of kidney injury. So we will admit him to the floor continue to give him lactated Ringer's at 250 cc an hour presently on his fourth liter at this time. Labs will be repeated in the morning to see if you are making progress Hospital Course Hospital Course Hospital Course: Bjorn Moreau is a 34-year-old male who sustained muscle injury after intense exercise/working out this past week. Admitted for further management. Kidney function remains stable. Continues aggressive hydration and inpatient care for severe rhabdomyolysis and risk for renal injury/failure. Problems addressed as follows: #Rhabdomyolysis #Muscle injury ? Initial CK greater than 160,000 with diffuse muscle aches. Significant elevated AST/ALT in the 1000 over 600s, likely sign of muscle injury rather than liver injury. RUQ scan normal, no RUQ pain. No signs of hematoma or renal dysfunction. ? Symptoms and CK gradually improved with aggressive IV fluid resuscitation. CK on day of discharge 36,000. ? Muscle soreness was initially managed with opioids, but transition to Flexeril which was equally effective. ? LFTs also improved significantly over hospital course. Ambulating independently without issues. ? 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 Also advised patient to reduce light exposure for the next week, and judiciously stay hydrated. ? Advised to follow-up with PCP within 1 week. History of hypothyroidism: Continue levothyroxine 200 mcg a day. Follow-up TFTs. Anxiety: Continue Zoloft 25 mg daily Hypertension: Continue verapamil 120 mg Exam Data for Last 24 hours Vital signs and Labs for Last 24 Hours: Temp Pulse Resp BP Pulse Ox O2 Del Method 97.8 F 71 13 118/73 98 Room Air 12/22/24 08:00 12/22/24 08:00 12/22/24 08:00 12/22/24 08:00 12/22/24 08:00 12/22/24 11:05 Laboratory Results - last 24 hr 12/21/24 06:07: Sodium 133 L, Potassium 4.5, Chloride 101, Carbon Dioxide 31 H, Anion Gap 5.5, BUN 13, Creatinine 0.90 D, Estimated Creat Clear 202, Estimated GFR 98, Est GFR ( Amer) 118 D, Glucose 99, Calcium 9.0 12/21/24 15:45: Sodium 139, Potassium 4.6, Chloride 101, Carbon Dioxide 33 H, Anion Gap 9.6, BUN 13, Creatinine 1.10 D, Estimated Creat Clear 165, Estimated GFR 78, Est GFR ( Amer) 94 D, Glucose 96, Calcium 9.9, Total Creatine Kinase 83538 H* 12/22/24 06:15: WBC 7.0, RBC 4.88, Hgb 14.3, Hct 43.8, MCV 89.8, MCH 29.3, MCHC 32.6, RDW 12.3, Plt Count 205, MPV 10.6 H, Neut % (Auto) 67.3, Lymph % (Auto) 21.1, Banner % (Auto) 6.7, Eos % (Auto) 2.9, Baso % (Auto) 0.9, Neut # (Auto) 4.7, Lymph # (Auto) 1.5, Banner # (Auto) 0.5, Eos # (Auto) 0.2, Baso # (Auto) 0.1, Sodium 138, Potassium 4.5, Chloride 101, Carbon Dioxide 32 H, Anion Gap 9.5, BUN 16, Creatinine 1.10, Estimated Creat Clear 161, Estimated GFR 78, Est GFR ( Amer) 94, Glucose 113 H, Calcium 9.6, Magnesium 1.9, Total Bilirubin 0.3, AST 701 H* D, ALT 453 H*, Alkaline Phosphatase 64, Total Creatine Kinase 11399 H*, Total Protein 6.6, Albumin 3.9, Globulin 2.7, Albumin/Globulin Ratio 1.4 I & O for Last 24 hours: Intake & Output 12/19/24 12/20/24 12/21/24 12/22/24 23:59 23:59 23:59 23:59 Intake Total 4010 / 5865 3175 / 3175 4471 / 5548 1407 / 1407 Output Total 0 / 0 3300 / 3300 4200 / 4200 0 / 0 Balance 4010 / 5865 -125 / -125 271 / 1348 1407 / 1407 Weight 117.82 kg 121.38 kg 121.109 kg 118.104 kg Constitutional Constitutional: no acute distress *Routine HEENT Exam Head: Present normocephalic Eye: Present EOMI and PERRL ENT: Present mucous membranes moist *Routine Neck Exam Neck: Present supple; Absent lymphadenopathy *Routine Respiratory Exam Respiratory: Present CTA bilaterally *Routine Cardiovascular Exam Cardiovascular: Present RRR *Routine Abdominal Exam Abdominal: Present soft and normoactive bowel sounds; Absent tenderness *Routine Extremities Exam Extremities: Absent cyanosis, clubbing or edema *Routine Skin Exam Skin: Present warm; Absent rash *Routine Neurological Exam Neurological: Present alert and oriented X3 Results Data Completed and Pending Labs on day of discharge: Labs from last 24 hours 12/22/24 12/21/24 12/21/24 06:15 15:45 06:07 WBC 7.0 RBC 4.88 Hgb 14.3 Hct 43.8 MCV 89.8 MCH 29.3 MCHC 32.6 RDW 12.3 Plt Count 205 MPV 10.6 H Neut % (Auto) 67.3 Lymph % (Auto) 21.1 Banner % (Auto) 6.7 Eos % (Auto) 2.9 Baso % (Auto) 0.9 Neut # (Auto) 4.7 Lymph # (Auto) 1.5 Banner # (Auto) 0.5 Eos # (Auto) 0.2 Baso # (Auto) 0.1 Sodium 138 139 133 L Potassium 4.5 4.6 4.5 Chloride 101 101 101 Carbon Dioxide 32 H 33 H 31 H Anion Gap 9.5 9.6 5.5 BUN 16 13 13 Creatinine 1.10 1.10 D 0.90 D Estimated Creat Clear 161 165 202 Estimated GFR 78 78 98 Est GFR ( Amer) 94 94 D 118 D Glucose 113 H 96 99 Calcium 9.6 9.9 9.0 Magnesium 1.9 Total Bilirubin 0.3 AST 701 H* D ALT 453 H* Alkaline Phosphatase 64 Total Creatine Kinase 34718 H* 18970 H* Total Protein 6.6 Albumin 3.9 Globulin 2.7 Albumin/Globulin Ratio 1.4 DS: Diagnosis Discharge Diagnosis (1) Rhabdomyolysis: Status: Acute Code(s): M62.82 - Rhabdomyolysis Qualifiers: Encounter type: initial encounter Rhabdomyolysis type: traumatic Qualified Code(s): T79.6XXA - Traumatic ischemia of muscle, initial encounter (2) Muscle pain: Status: Acute Code(s): M79.10 - Myalgia, unspecified site (3) Hematuria: Status: Acute Code(s): R31.9 - Hematuria, unspecified Qualifiers: Hematuria type: unspecified type Qualified Code(s): R31.9 - Hematuria, unspecified (4) Hypothyroidism: Status: Acute Code(s): E03.9 - Hypothyroidism, unspecified Qualifiers: Hypothyroidism type: unspecified Qualified Code(s): E03.9 - Hypothyroidism, unspecified Meds Home Medications and Allergies Home Medications ?Medication ?Instructions ?Recorded ?Confirmed ?Type levothyroxine 200 mcg tablet 200 mcg PO DAILY 90 days #90 tabs 09/23/24 12/17/24 Rx sertraline 25 mg tablet (Zoloft) 25 mg PO DAILY anxiety #30 tabs 10/29/24 12/17/24 Rx verapamil 120 mg tablet,extended 120 mg PO DAILY 12/18/24 12/18/24 History release cyclobenzaprine 10 mg tablet 10 mg PO Q6HP PRN Muscle Pain #10 12/22/24 Rx tabs New Prescriptions to Start Prescriptions: cyclobenzaprine Jonah Blunt Allergies Allergy/AdvReac Type Severity Reaction Status Date / Time No Known Allergies Allergy Verified 08/23/24 12:41 Discharge Plan Disposition Patient Disposition: Home, Self-Care Condition: Fair Discharge Order Discharge Orders: Discharge Order (Routine); Ordered 12/22/24 Ordered By: Jonah Blunt Follow up Plan Follow up with: Calvin Bailey MD [Primary Care Provider, Internal Medicine] - 12/29/24 3:00 pm Prescriptions/Medication Reconciliation: New cyclobenzaprine 10 mg Tablet 10 mg PO Q6HP PRN (Reason: Muscle Pain) Qty: 10 0RF Continued levothyroxine 200 mcg tablet 200 mcg PO DAILY 90 Days Qty: 90 0RF sertraline [Zoloft] 25 mg tablet 25 mg PO DAILY Qty: 30 1RF verapamil 120 mg tablet extended release 120 mg PO DAILY Problem Reconciliation Problems Reviewed?: Yes Patient Discharge Instructions Stand Alone Forms: [facility] Work Release Patient Instructions: DI for Rhabdomyolysis Print Language: Croatian Providers Primary Care Provider: Calvin Bailey Admit Provider: Ruben Villegas Attending Provider: Ruben Villegas
[2024-12-22 17:21] LABS: Free T4 (Free Thyroxine) 0.98 ng/dl (0.78-2.19)
[2024-12-22 17:36] LABS: Thyroid Stimulating Hormone 3.54 uIU/mL (0.465-4.68)
--- NOTE | 2024-12-24 10:46 | SW/DCPLANNER ---
Phone patient x2. The first time patient was in the ER and today i left a message with my name and call back number. Nidhi GUEVARA Computer Aided Design Operator
== END 2024-12-22 12:00 | disposition home or self-care (01) | DRG 558 ==
LOC: ER 18:57 → 2ND 23:18
PROVIDERS: Nurse Practitioner Family; Student in an Organized Health Care Education/Training Program; Admitting Provider Internal Medicine Adolescent Medicine; Emergency Provider Emergency Medicine; PCP Family Medicine; Visit Provider Internal Medicine Adolescent Medicine
DX: M62.82 Rhabdomyolysis (principal); E03.9 Hypothyroidism, unspecified; I10 Essential (primary) hypertension; F41.0 Panic disorder [episodic paroxysmal anxiety]; R31.9 Hematuria, unspecified; Z79.890 Hormone replacement therapy; Z79.899 Other long term (current) drug therapy; Z80.9 Family history of malignant neoplasm, unspecified
CPT/HCPCS: 36415; 80048; 80053; 81001; 82550; 83605; 83735; 84100; 84439; 84443; 85025; J1171; J1650; J7120

== ENCOUNTER 2024-12-22 22:11 | Emergency (ER) | payer OTHER, SELFPAY ==
[2024-12-22 22:22] VITALS: BP 134/83; PULSE 100; RESP 18; TEMP 36.9; O2SAT 100; BMI 33.0
[2024-12-22 23:00] VITALS: BP 145/76; PULSE 90; O2SAT 96
[2024-12-22 23:31] VITALS: BP 141/66; PULSE 97; O2SAT 96
[2024-12-23] MEDS: IBUPROFEN 800 MG TABLET PO (00:01)
[2024-12-23 00:05] VITALS: BP 130/87; PULSE 89; RESP 20; TEMP 36.6; O2SAT 98
--- NOTE | 2024-12-24 01:32 | HMH.EDGENADL ---
Discharge Plan Disposition Patient Disposition: Home, Self-Care Condition: Good Prescriptions Prescriptions: New ibuprofen 800 mg tablet 800 mg PO TID 7 Days Qty: 21 0RF No Action levothyroxine 200 mcg tablet 200 mcg PO DAILY 90 Days Qty: 90 0RF sertraline [Zoloft] 25 mg tablet 25 mg PO DAILY Qty: 30 1RF verapamil 120 mg tablet extended release 120 mg PO DAILY cyclobenzaprine 10 mg Tablet 10 mg PO Q6HP PRN (Reason: Muscle Pain) Qty: 10 0RF Referrals Follow up/Referrals: Calvin Bailey MD [Primary Care Provider, Internal Medicine] - See instructions Activity Restrictions/Add. Instructions Additional Instructions/Restrictions: You were evaluated in the ER and are appropriate for discharge at this time. Take ibuprofen as prescribed for the next week. Use warm compresses on the area at least 4 times a day. Make an appointment with your primary care doctor for close reevaluation in the next few days. Return to the ER with any new, worsening, or otherwise concerning symptoms including but not limited to symptoms of infection as discussed. Clinical Impressions Clinical Impression: Thrombophlebitis arm Instructions Patient Instructions: DI for Skin Abscess Print Language Print Language: Wallisian Discharge ED Provider: Marquise Ortiz General Adult HPI General Chief complaint: Skin/Abscess/Foreign Body Stated complaint: R Arm Pus from IV Time Seen by Provider: 12/22/24 23:02 Mode of Arrival: Ambulatory Source of Information: Patient Description of Symptoms (Recalled from ER Triage Doc. by RN): Pt was admitted to [facility] for Rhabdo for 6 days. Pt was discharged today. Pt is presenting for evaluation of redness to his right arm where the IV site was. Pt states the IV was inserted to his right arm on friday and was removed today. Pt states the IV covering was never changed. Pt has a hx of MRSA. History of Present Illness HPI narrative: 34-year-old male presents to the ER for complaints of right arm pain and redness. Patient was discharged today after being admitted to the hospitalist for 6 days for rhabdomyolysis. Patient reports IV was in place in the right upper extremity for 6 days and less than 12 hours after removal he started developing pain and redness at the site. He also reports a small amount of white material discharging from the wound. Patient does report a history of MRSA but is not having any fever or systemic symptoms. No numbness, tingling, or weakness. No other complaints or concerns. Related Data Home Medications ?Medication ?Instructions ?Recorded ?Confirmed verapamil 120 mg tablet,extended 120 mg PO DAILY 12/18/24 12/18/24 release Previous Rx's ?Medication ?Instructions ?Recorded levothyroxine 200 mcg tablet 200 mcg PO DAILY 90 days #90 tabs 09/23/24 sertraline 25 mg tablet (Zoloft) 25 mg PO DAILY anxiety #30 tabs 10/29/24 cyclobenzaprine 10 mg tablet 10 mg PO Q6HP PRN Muscle Pain #10 12/22/24 tabs ibuprofen 800 mg tablet 800 mg PO TID 7 days #21 tabs 12/22/24 Allergies Allergy/AdvReac Type Severity Reaction Status Date / Time No Known Allergies Allergy Verified 08/23/24 12:41 [facility] Disclaimer: The information contained in this section may have been updated after the patient was seen, as this information can be updated by other users. Medical History (Updated 12/22/24 @ 23:55 by Brenden Berkowitz MD) Panic attacks Hypothyroidism Migraine Surgical History No significant past surgical history Family History Mother Cancer Social History Smoking Status: Never smoker alcohol intake: never substance use type: denies use current occupational status: employed Travel in the last 8 weeks?: None household members: significant other housing: house Have you lived/traveled outside [place] in past 30 days?: No Contact w/someone who lives/traveled outside US past 30 days?: No Exposure to someone with infectious disease in past 14 days?: No Do you have a fever (greater than 100.4 F or 38 C)?: No Have you tested positive for COVID-19?: No Exposed to someone with COVID-19 in past 14 days?: No Do you have a sore throat?: No Do you have a cough?: No Do you have any weakness?: No Do you have any diarrhea?: No Are you experiencing any unusual bleeding?: No Do you have any muscle aches/pain?: No Do you have any abdominal pain?: No Are you experiencing loss of taste or smell?: No Other Medical History Have you received the Flu Vaccine for this season: No Have you received the Pneumonia Vaccine: No ROS Obtained: Yes Systems reviewed as appropriate & no additional complaints except as documented Per HPI Physical Exam General General appearance: alert and in no apparent distress Head Head exam: atraumatic and normocephalic Eye Eye exam: Present PERRL and EOMI ENT ENT exam: Present mucous membranes moist Neck Neck exam: Present normal inspection and full ROM Chest Chest inspection: Present symmetric chest wall rise Respiratory Respiratory exam: Present normal lung sounds bilaterally; Absent respiratory distress, wheezes or stridor Cardiovascular Cardiovascular exam: Present regular rate and normal rhythm Extremities Exam Extremities exam: Present full ROM Expanded Upper Extremity Exam Right: Elbow exam: Present full ROM, tenderness (Tenderness in the right AC with 3 cm area of erythema but no induration, there is mild associated warmth, there is a central lesion where the IV was inserted that has a small scab but no fluctuance or discharge at this time) and erythema; Absent swelling or abrasion Neurological Exam Neurological exam: Present alert, oriented X3 and other (Neurovascularly intact throughout); Absent motor sensory deficit Psychiatric Psychiatric exam: Present normal affect and normal mood Skin Skin exam: Present warm and dry Medical Decision Making Medical Records Medical records reviewed: Yes I reviewed the patient's medical records. Screening: Per USPSTF and CDC recommendations, given the prevalence of disease in our region, it is our hospital?s policy to screen for HIV and viral Hepatitis for all patients aged 18 and over and those with ongoing risk factors. [place] Inquiry Pt receiving controlled substance: No Vital Signs: 12/22/24 22:22 12/22/24 23:00 12/22/24 23:31 Temperature 98.5 F Temperature Source Temporal Artery Scan Pulse Rate 90 97 H Pulse Rate [Right] 100 H Respiratory Rate 18 Blood Pressure 145/76 H 141/66 H Blood Pressure [Right Arm] 134/83 Blood Pressure Mean [Right Arm] 100 Blood Pressure Source Blood Pressure Source [Right Arm] Automatic Cuff Blood Pressure Position Blood Pressure Position [Right Arm] Sitting 02 Sat by Pulse Oximetry 100 96 96 Oxygen Delivery Method 12/23/24 00:05 Temperature 97.8 F Temperature Source Oral Pulse Rate 89 Pulse Rate [Right] Respiratory Rate 20 Blood Pressure 130/87 Blood Pressure [Right Arm] Blood Pressure Mean [Right Arm] Blood Pressure Source Automatic Cuff Blood Pressure Source [Right Arm] Blood Pressure Position Sitting Blood Pressure Position [Right Arm] 02 Sat by Pulse Oximetry Oxygen Delivery Method Room Air Orders (Tests/Meds): ED MEDICATIONS Discontinued Medications Generic Name Dose Route Start Last Admin Trade Name Murtaza PRN Reason Stop Dose Admin Ibuprofen 800 mg 12/22/24 23:54 12/23/24 00:01 Ibuprofen 800 Mg Tablet PO 12/22/24 23:55 800 mg ONCE ONE Administration ORDERS Category Date Time Status POCUS Point of Care (ER Only) Stat Exams 12/22/24 23:02 Completed Medical Decision Narrative: In summary, this 34-year-old male with comorbidities described in the HPI including recent hospitalization for rhabdomyolysis presents to the emergency department today with right upper extremity redness and concern of possible infection at recently removed IV site. On initial evaluation patient is hemodynamically stable, afebrile, patient has area of erythema without induration or fluctuance, small central wound where the IV catheter was inserted has a small scab with no fluctuance or discharge at this time. Differential diagnosis includes but is not limited to phlebitis, also considered septic thrombophlebitis, cellulitis, abscess. Since patient has no systemic signs of illness and is only about 12 hours from the time of discharge I have very low suspicion for infection at this time so labs were not ordered. [id number] ultrasound was personally performed and interpreted and I appreciate a thrombus in the superficial vein but it is a short area of thrombus and does not approach any deep veins, there is also no surrounding cobblestoning that would be evidence of cellulitis, no abscess. Based on the appearance of the thrombus, its location, size, and other associated symptoms I do not believe patient requires anticoagulation or antibiotics at this time. He received ibuprofen in the ER and this was prescribed as well. He was instructed to apply warm compresses to the area multiple times a day to encourage the area to dissolve. Additionally patient was given explicit instructions on close symptomatic monitoring and follow-up as well as strict return precautions for the ER including return precautions if he were to develop any new or worsening signs of infection. Patient indicated understanding all instructions. He was discharged in stable condition. Procedures Miscellaneous Procedure Procedure Performed: Soft tissue ultrasound Indication: Soft tissue redness Identified structures: Soft tissues of the right AC fossa Location: Right AC Findings: No cellulitis or abscess, no foreign body, patient does have noncompressible superficial vein with evidence of thrombophlebitis in the superficial vein of the right AC, it is a short segment and does not encroach on any deep veins Impression: Normal soft tissue ultrasound, thrombophlebitis present Images were saved saved to the permanent archive. The study was technically adequate. Soft tissue CPT codes Neck: 41789-69 Upper extremity: 74820-51 Axilla: 60148-51 Chest wall: 58902-57 Breast: 70806-16 (complete), 15654-90-[RT/LT] (limited) Upper back: 63659-77 Abdominal wall: 56103-23 Pelvic wall: 08876-51 Lower extremity: 03971-03 Other soft tissue: 73675-37 This study was performed by me, and I personally interpreted all images/videos. Based on my clinical judgment, these images were adequate and did not necessitate further imaging. Critical Care Critical Care Time Critical Care Time: No
== END 2024-12-23 00:07 | disposition home or self-care (01) ==
PROVIDERS: Emergency Provider Student in an Organized Health Care Education/Training Program; PCP Family Medicine
DX: I80.8 Phlebitis and thrombophlebitis of other sites (principal)
CPT/HCPCS: 99284

== ENCOUNTER 2024-12-29 09:05 | Outpatient (CLI) | payer OTHER, SELFPAY ==
[2024-12-29 16:56] LABS: Basophils # 0.1 K/mm3 (0-0.2); Basophils % 0.9 % (0.1-2.0); Eosinophils # 0.2 Kmm3 (0.0-0.4); Eosinophils % 2.6 % (0.1-12.0); Hematocrit 43.9 % (42.0-52.0); Hemoglobin 14.9 g/dL (14.1-18.0); Immature Granulocytes # 0.07 10^3uL; Immature Granulocytes % 0.8 %; Lymphocytes % 22.1 % (10-50); Mean Corpuscular HGB Conc 33.9 g/dL (31.8-35.4); Mean Corpuscular Hemoglobin 29.8 pg (27.0-31.2); Mean Corpuscular Volume 87.8 fl (80-94); Mean Platelet Volume 11.1 fl (7.4-10.4); Monocytes # 0.6 K/mm3 (0.1-1.0); Monocytes % 6.3 % (1.7-9.3); Neutrophils # 6.2 K/mm3 (1.8-7.8); Neutrophils % 67.3 % (37.0-80.0); Nucleated Red Blood Cells # 0 10^3/uL; Nucleated Red Blood Cells % 0 %; Platelet Count 307 K/mm3 (142-424); Red Cell Distribution Width 12.1 % (11.5-17.5); Red Cell Distribution Width-SD 38.6 fL; White Blood Count 9.1 K/mm3 (4.8-10.8)
[2024-12-29 17:18] LABS: Alanine Aminotransferase 92 U/L (12-78); Albumin Level 4.5 g/dl (3.5-5.0); Albumin/Globulin Ratio 1.7 (1.1-1.8); Alkaline Phosphatase 76 U/L (38-126); Anion Gap 12.4 mEq/L (5-15); Aspartate Amino Transferase 42 U/L (17-59); Bilirubin,Total 0.4 mg/dl (0.2-1.3); Blood Urea Nitrogen 22 mg/dl (9-20); Calcium 9.5 mg/dl (8.4-10.2); Carbon Dioxide 23 mmol/L (22.0-30.0); Chloride 106 mmol/L (98-107); Estimated Glomerular Filt Rate 87 ml/min (>60); GFR (African American) 105 ML/MIN (>60); Globulin 2.7 g/dL (1.3-3.2); Glucose 115 mg/dl (74-100); Potassium 4.4 mmoL/L (3.5-5.1); Sodium 137 mmol/L (136-145); Total Protein,Serum 7.2 g/dl (6.3-8.2)
[2024-12-29 17:48] LABS: Thyroid Stimulating Hormone 4.24 uIU/mL (0.465-4.68)
[2024-12-30 07:16] LABS: Hepatitis B Surface Antigen Negative (Negative)
[2024-12-30 12:23] LABS: Creatine Kinase 250 U/L (55-170)
== END 2024-12-29 23:59 | disposition home or self-care (01) ==
LOC: LAB.DROPOF 12-30 09:06
PROVIDERS: PCP Family Medicine; Visit Provider Family Medicine
DX: Z11.59 Encounter for screening for other viral diseases (principal); E03.9 Hypothyroidism, unspecified; T79.6XXA Traumatic ischemia of muscle, initial encounter; X58.XXXA Exposure to other specified factors, initial encounter
CPT/HCPCS: 80053; 82550; 84443; 85025; 87340